=== PATIENT | female | born 1940 | race Caucasian/White ===

== ENCOUNTER 2020-06-12 12:57 | Inpatient (IN) | payer MEDICARE, MEDICAID ==
[~2020-06-12] VITALS: Ht 160 cm; Wt 49.5 kg
[2020-06-12] MEDS ORDERED: FUROSEMIDE20 MG PO (13:14)
[2020-06-12] MEDS ORDERED: ZOFRAN4 MG PO (13:14)
[2020-06-12] MEDS ORDERED: REMERON15 MG PO (13:14)
[2020-06-12 14:07] LABS: ANION GAP 13.2 mmol/L (8-16); CALCIUM 9.8 mg/dL (8.5-10.1); CARBON DIOXIDE 23.8 mmol/L (21.0-32.0)
[2020-06-12 14:13] LABS: ALBUMIN 2.9 g/dL (3.4-5.0); BILIRUBIN - TOTAL 0.27 mg/dL (0.2-1.3); PROTEIN - SERUM 7.1 g/dL (6.4-8.2)
[2020-06-12 14:15] LABS: BASOPHILS 0.5 % (0-2); EOSINOPHILS 0.2 % (0-7); HEMATOCRIT 36.7 % (36.0-48.0); HEMOGLOBIN 12.6 g/dL (12-16); IMMATURE GRANULOCYTES 0.5 % (0-5); LYMPHOCYTE ABS# 0.86 10x3/uL (1.18-3.74); LYMPHOCYTES 21.4 % (15-50); MCH 32.1 pg (26.0-34.0); MCHC 34.3 g/dL (31.0-37.0); MCV 93.4 fL (80.0-100.0); MEAN PLATELET VOLUME 9.7 fL (7.4-10.4); MONOCYTES 10.2 % (2-11); NEUTROPHIL ABS# 2.69 10x3/uL (1.56-6.13); NEUTROPHILS 67.2 % (40-80); PLATELET COUNT 214 10x3/uL (130-400); RBC 3.93 10x6/uL (4.00-5.40); RDW 12.2 % (11.5-14.5)
--- NOTE | 2020-06-12 15:00 | NUR ---
URINE OBTAINED AND TAKEN TO THE LAB
[2020-06-12 15:06] LABS: CKMB 1.9 U/L (0.0-3.6); CREATINE KINASE 292 UL (21-215); MAGNESIUM - SERUM 2.2 mg/dL (1.8-2.4); TROPONIN-I < 0.017 ng/mL (0.000-0.060)
[2020-06-12 15:30] LABS: UDS - AMPHET NEGATIVE QUAL (NEGATIVE); UDS - BARB NEGATIVE QUAL (NEGATIVE); UDS - BENZO NEGATIVE QUAL (NEGATIVE); UDS - COCAINE NEGATIVE QUAL (NEGATIVE); UDS - OPIATE NEGATIVE QUAL (NEGATIVE); UDS - PCP NEGATIVE QUAL (NEGATIVE); UDS - THC NEGATIVE QUAL (NEGATIVE)
[2020-06-12 15:36] LABS: INR 0.94 (0.85-1.17); PROTIME 11.6 SECONDS (11.6-15.0)
[2020-06-12 15:37] LABS: APTT 28.3 SECONDS (22.8-39.4)
[2020-06-12 15:52] LABS: BILIRUBIN NEGATIVE (NEGATIVE); KETONE NEGATIVE (NEGATIVE); NITRITE NEGATIVE (NEGATIVE); UROBILINOGEN NORMAL mg/dL (< 2)
[2020-06-12 15:53] LABS: BACTERIA FEW HPF (NONE SEEN); SQUAMOUS EPITHELIAL OCC HPF (0-4); WHITE CELLS - URINE 0-5 HPF (0-4)
--- NOTE | 2020-06-12 19:09 | NUR ---
PT IS AWAKE WITH EYES OPEN, ABLE TO HOLD CONVERSATION. SHE DOES NOT REMEMBER SEEING HER DAUGHTER 4 DAYS AGO AND DOESN'T REMEMBER ANYTHING SINCE.
--- NOTE | 2020-06-12 19:29 | NUR ---
FSBS 144
--- NOTE | 2020-06-12 20:10 | NUR ---
PT TO MRI AT THIS TIME.
[2020-06-12 20:28] VITALS: BP 147/54
[2020-06-12 21:23] VITALS: BP 160/65
[2020-06-12 22:50] VITALS: BP 155/60
--- NOTE | 2020-06-13 06:47 | NUR ---
PATIENT FSBS 61. HELPED PATIENT DRINK ORANGE JUICE.
[2020-06-13 08:31] LABS: BASOPHILS 0.4 % (0-2); EOSINOPHILS 1.3 % (0-7); HEMATOCRIT 35.2 % (36.0-48.0); HEMOGLOBIN 11.9 g/dL (12-16); IMMATURE GRANULOCYTES 0.2 % (0-5); LYMPHOCYTE ABS# 1.38 10x3/uL (1.18-3.74); LYMPHOCYTES 29.2 % (15-50); MCH 31.6 pg (26.0-34.0); MCHC 33.8 g/dL (31.0-37.0); MCV 93.6 fL (80.0-100.0); MEAN PLATELET VOLUME 9.8 fL (7.4-10.4); MONOCYTES 10.4 % (2-11); NEUTROPHIL ABS# 2.77 10x3/uL (1.56-6.13); NEUTROPHILS 58.5 % (40-80); PLATELET COUNT 199 10x3/uL (130-400); RBC 3.76 10x6/uL (4.00-5.40); RDW 12.2 % (11.5-14.5); WBC 4.7 10x3/uL (4.8-10.8)
[2020-06-13 08:52] LABS: ALBUMIN 2.4 g/dL (3.4-5.0); ANION GAP 11.5 mmol/L (8-16); BILIRUBIN - TOTAL 0.17 mg/dL (0.2-1.3); CALCIUM 8.7 mg/dL (8.5-10.1); CARBON DIOXIDE 25.1 mmol/L (21.0-32.0); CREATININE - SERUM 0.8 mg/dL (0.6-1.3); MAGNESIUM - SERUM 1.9 mg/dL (1.8-2.4); POTASSIUM - SERUM 3.6 mmol/L (3.5-5.1); PROTEIN - SERUM 6.1 g/dL (6.4-8.2)
[2020-06-13 09:24] VITALS: BP 142/68
--- NOTE | 2020-06-13 10:47 | NUR ---
Rehab Prescreening Consult recieved and the chart. She still has a CM, PT, OT and an ST eval pending. Rehab Will follow. Ebony Christie RN Clinical Liaison, Rehab
[2020-06-13 12:54] VITALS: BMI 19.4
--- NOTE | 2020-06-13 14:00 | NUR ---
INCONTINENCE CARE, HYGIENE CARE AND LINEN CHANGE. SCD'S APPLIED.
[2020-06-13 20:23] VITALS: BP 109/43
--- NOTE | 2020-06-13 22:01 | NUR ---
REC'D WALKING ROUNDS CHGE OF SHIFT IN BED FAMILY MEMBER AT BEDSIDE. ALERT BUT CONFUSED TO TIME AND SITUATION LUIZA MAT IN PLACE.WILL CONTINUE TO MONITOR FOR ANY CHGES AND FOLLOW CURRENT PLAN OF CARE
[2020-06-14] VITALS (7 sets, daily range): BP systolic 110–138; BP diastolic 40–66; Ht 160 cm; Wt 49.5 kg
--- NOTE | 2020-06-14 05:54 | NUR ---
I have reviewed this patient and I concur with the Shift Assessment completed by the Licensed Practical Nurse today this shift.
[2020-06-14 06:41] LABS: ALBUMIN 2.4 g/dL (3.4-5.0); ANION GAP 11.6 mmol/L (8-16); BILIRUBIN - TOTAL 0.14 mg/dL (0.2-1.3); CALCIUM 8.7 mg/dL (8.5-10.1); CARBON DIOXIDE 25.5 mmol/L (21.0-32.0); CREATININE - SERUM 0.9 mg/dL (0.6-1.3); MAGNESIUM - SERUM 1.8 mg/dL (1.8-2.4); POTASSIUM - SERUM 3.1 mmol/L (3.5-5.1)
[2020-06-14 06:50] LABS: BASOPHILS 0.9 % (0-2); EOSINOPHILS 1.8 % (0-7); HEMATOCRIT 33.8 % (36.0-48.0); HEMOGLOBIN 11.5 g/dL (12-16); IMMATURE GRANULOCYTES 0.2 % (0-5); LYMPHOCYTE ABS# 2.02 10x3/uL (1.18-3.74); LYMPHOCYTES 44.2 % (15-50); MCH 31.7 pg (26.0-34.0); MCV 93.1 fL (80.0-100.0); MEAN PLATELET VOLUME 9.9 fL (7.4-10.4); MONOCYTES 11.8 % (2-11); NEUTROPHIL ABS# 1.88 10x3/uL (1.56-6.13); NEUTROPHILS 41.1 % (40-80); PLATELET COUNT 209 10x3/uL (130-400); RBC 3.63 10x6/uL (4.00-5.40); RDW 12.1 % (11.5-14.5); WBC 4.6 10x3/uL (4.8-10.8)
--- NOTE | 2020-06-14 07:28 | NUR ---
ALERT AND ORIENTED TO SELF. ASSESSMENT COMPLETE. BED LOW. CALL WELCH AND PERSONAL ITEMS IN REACH. WILL CONTINUE TO MONITOR.
--- NOTE | 2020-06-14 10:19 | NUR ---
IV PULLED OUT BY PATIENT TO LFA. REMOVED WITH TIP INTACT. ATTEMPTED TO RESITE TO INNER LFA WITH 22 GAUGE WITHOUT SUCCESS D/T PATIENT YELLING AND PULLING ARM AWAY. WILL HAVE SECOND NURSE ATTEMPT.
--- NOTE | 2020-06-14 10:30 | NUR ---
IV SITED TO [facility] WITH 22 GAUGE.
--- NOTE | 2020-06-14 16:43 | NUR ---
OT NOTE: PT IS CONFUSED. PT COMPLETED FACE AND HAND HYGIENE WITH SETUP AND MIN CUES FOR INCREASED PARTICIPATION. PT COMPLETED ORAL CARE WITH SETUP WITH TOOTHETTE. THANK YOU,VILMA ROWE
--- NOTE | 2020-06-14 22:57 | NUR ---
PATIENT WAS ASLEEP IN BED UPON ARRIVAL OF ASSIGNMENT. EASY TO AROUSE. NO PAIN NOR DISTRESS NOTED. IV INTACT AND FLOWING NORMAL SALINE. BED IN LOW POSITON. CALL WELCH LIGHT IN REACH. REORIENTED TO CALL FOR HELP TO BATHROOM.
[2020-06-15] VITALS: BP 114/47
[2020-06-15 04:00] VITALS: BP 167/59
[2020-06-15 06:14] LABS: BASOPHILS 0.4 % (0-2); EOSINOPHILS 1.6 % (0-7); HEMATOCRIT 30.5 % (36.0-48.0); HEMOGLOBIN 10.6 g/dL (12-16); IMMATURE GRANULOCYTES 0.4 % (0-5); LYMPHOCYTE ABS# 2.28 10x3/uL (1.18-3.74); MCH 31.9 pg (26.0-34.0); MCHC 34.8 g/dL (31.0-37.0); MCV 91.9 fL (80.0-100.0); MEAN PLATELET VOLUME 9.8 fL (7.4-10.4); MONOCYTES 12.4 % (2-11); NEUTROPHIL ABS# 2.04 10x3/uL (1.56-6.13); NEUTROPHILS 40.2 % (40-80); PLATELET COUNT 210 10x3/uL (130-400); RBC 3.32 10x6/uL (4.00-5.40); RDW 12.1 % (11.5-14.5); WBC 5.1 10x3/uL (4.8-10.8)
[2020-06-15 06:18] LABS: ALBUMIN 2.1 g/dL (3.4-5.0); ANION GAP 9.5 mmol/L (8-16); BILIRUBIN - TOTAL 0.12 mg/dL (0.2-1.3); CALCIUM 8.1 mg/dL (8.5-10.1); CARBON DIOXIDE 25.4 mmol/L (21.0-32.0); MAGNESIUM - SERUM 1.8 mg/dL (1.8-2.4); PROTEIN - SERUM 5.7 g/dL (6.4-8.2)
[2020-06-15 07:14] LABS: POTASSIUM - SERUM 2.9 mmol/L (3.5-5.1)
--- NOTE | 2020-06-15 08:24 | NUR ---
Pt laying in bed on right side, refused medications, threats to hit staff, was able to get protonix iv to pt
[2020-06-15 08:33] VITALS: BP 170/67
--- NOTE | 2020-06-15 10:39 | NUR ---
PT INFORMED THIS RN THAT PT REFUSE AND WOULD NOT GET UP OR ROLL OVER FOR THEM, THEY WILL TRY AGAIN LATER IF THEY HAVE TIME
--- NOTE | 2020-06-15 11:54 | NUR ---
PT LAYING IN BED ON RIGHT SIDE RESTING WITH EYES CLOSED, ABLE TO OBTAIN FSBG OF 82, REFUSED PO MEDICATION
[2020-06-15 12:30] VITALS: BP 152/58
--- NOTE | 2020-06-15 14:33 | NUR ---
Nutrition follow-up: Pt receiving a consistent CHO diet RDN visited with pt during breakfast; pt had eaten ~50% of meal Pt did answer some questions Labs reviewed Wt: 109# PO intake poor to fair at meals; pt working with speech path Will continue to provide food choices and honor food preferences Will offer Glucerna Shake nutritional supplement RDN follow-up: 06/20/20
--- NOTE | 2020-06-15 14:59 | NUR ---
OT NOTE: PT REQUIRED CUES FOR PARTICIPATION. PT COMPLETED SUPINE TO SIT WITH MIN A. PT COMPLETED BED TO BSC WITH MIN A. PT REQUIRED MOD A FOR TOILET HYGIENE. PT COMPLETED INCREASED FUNCTIONAL TASKS COMPARED TO PREVIOUS SESSION. [id number] THANK YOU,VILMA ROWE
[2020-06-15 16:52] VITALS: BP 141/50
[2020-06-15 20:16] VITALS: BP 160/60
[2020-06-16 01:19] VITALS: BP 174/67
[2020-06-16 05:36] VITALS: BP 151/53
--- NOTE | 2020-06-16 06:23 | NUR ---
PT RESTED THROUGHOUT THE SHIFT. PT GOT UP AND AMBULATED TO THE BEDSIDE COMMODE AND RESTROOM 2-3 TIMES IN THE NIGHT. NO PAIN NOTED. CURRENTLY RESTING IN BED WITH IT IN THE LOWEST POSITION. BED ALARM IS ACTIVATED. CALL WELCH LIGHT IN REACH. BLOOD GLUCOSE WAS 89 THIS MORNING. NO TREATMENT NECCESSARY
[2020-06-16 08:42] LABS: BASOPHILS 0.5 % (0-2); EOSINOPHILS 1.7 % (0-7); HEMATOCRIT 30.7 % (36.0-48.0); HEMOGLOBIN 10.7 g/dL (12-16); IMMATURE GRANULOCYTES 0.2 % (0-5); LYMPHOCYTE ABS# 2.56 10x3/uL (1.18-3.74); LYMPHOCYTES 43.8 % (15-50); MCH 31.8 pg (26.0-34.0); MCHC 34.9 g/dL (31.0-37.0); MCV 91.4 fL (80.0-100.0); MEAN PLATELET VOLUME 9.6 fL (7.4-10.4); MONOCYTES 14.2 % (2-11); NEUTROPHIL ABS# 2.31 10x3/uL (1.56-6.13); NEUTROPHILS 39.6 % (40-80); PLATELET COUNT 216 10x3/uL (130-400); RBC 3.36 10x6/uL (4.00-5.40); RDW 12.1 % (11.5-14.5); WBC 5.8 10x3/uL (4.8-10.8)
[2020-06-16 08:54] LABS: ALBUMIN 2.1 g/dL (3.4-5.0); ALKALINE PHOSPHATASE 72 U/L (30-120); BILIRUBIN - TOTAL 0.16 mg/dL (0.2-1.3); CALCIUM 8.2 mg/dL (8.5-10.1); CARBON DIOXIDE 25.8 mmol/L (21.0-32.0); CHLORIDE - SERUM 111 mmol/L (98-107); GLUCOSE 75 mg/dL (74-106); MAGNESIUM - SERUM 1.8 mg/dL (1.8-2.4); POTASSIUM - SERUM 3.2 mmol/L (3.5-5.1); PROTEIN - SERUM 5.7 g/dL (6.4-8.2); SODIUM 141 mmol/L (136-145)
[2020-06-16 08:57] LABS: ALT (SGPT) 24 U/L (10-68); CALC OSMOLALITY 278 mosm/kg (275-300); CREATININE - SERUM 0.6 mg/dL (0.6-1.3); UREA NITROGEN 11 mg/dL (7-18); eGFR NON AFRICAN AMERICAN > 90 mL/min (90-120)
--- NOTE | 2020-06-16 09:23 | NUR ---
PT RESUED VS AND MEDICATIONS THIS MORNING, WOULD NOT LET STAFF OBTAIN FSBG OR GIVE LOVENOX
[2020-06-16 11:54] VITALS: BP 172/64
[2020-06-16 17:12] VITALS: BP 127/55
--- NOTE | 2020-06-16 19:07 | NUR ---
RECEIVED REPORT, ASSUMED CARE, BREATHING EVEN UNLABORED, CALL LIGHT IN REACH, NO S/S OF DISTRESS NOTED, DENIES NEEDS, IV PATENT, ENCOURAGED PT TO NOTIFY STAFF OF ANY NEEDS, SITTING UP IN BED, LUIZA ALARM ON
[2020-06-16 21:51] VITALS: BP 136/55
[2020-06-17 01:25] VITALS: BP 137/45
[2020-06-17 05:47] VITALS: BP 193/64
[2020-06-17 06:00] LABS: BASOPHILS 0.5 % (0-2); EOSINOPHILS 1.4 % (0-7); HEMATOCRIT 31.2 % (36.0-48.0); HEMOGLOBIN 10.7 g/dL (12-16); IMMATURE GRANULOCYTES 0.6 % (0-5); LYMPHOCYTE ABS# 2.05 10x3/uL (1.18-3.74); LYMPHOCYTES 31.4 % (15-50); MCH 31.3 pg (26.0-34.0); MCHC 34.3 g/dL (31.0-37.0); MCV 91.2 fL (80.0-100.0); MEAN PLATELET VOLUME 10.2 fL (7.4-10.4); MONOCYTES 11.8 % (2-11); NEUTROPHIL ABS# 3.55 10x3/uL (1.56-6.13); NEUTROPHILS 54.3 % (40-80); RBC 3.42 10x6/uL (4.00-5.40); RDW 12.3 % (11.5-14.5); WBC 6.5 10x3/uL (4.8-10.8)
[2020-06-17 06:13] LABS: PLATELET COUNT 269 10x3/uL (130-400)
--- NOTE | 2020-06-17 06:54 | NUR ---
I have reviewed this patient and I concur with the Shift Assessment completed by the Licensed Practical Nurse today this shift.
[2020-06-17 07:53] LABS: ALBUMIN 2.2 g/dL (3.4-5.0); ANION GAP 6.9 mmol/L (8-16); BILIRUBIN - TOTAL 0.18 mg/dL (0.2-1.3); CARBON DIOXIDE 26.8 mmol/L (21.0-32.0); MAGNESIUM - SERUM 2.1 mg/dL (1.8-2.4); POTASSIUM - SERUM 3.7 mmol/L (3.5-5.1)
[2020-06-17 07:56] LABS: CREATININE - SERUM 0.8 mg/dL (0.6-1.3)
--- NOTE | 2020-06-17 08:33 | NUR ---
PT AGREED TO LOVENOX INJECTION THIS MORNING, TRIED TO RESIST AND PUSH THIS RN AWAY WITH INITIAL STICK BUT THEN CALMED DOWN AND ALLOWED RN TO FINISH INJECTION. REFUSED PO.
--- NOTE | 2020-06-17 10:41 | NUR ---
PT WET, SLAPPED AIDS AND REFUSED TO LET THEM CHANGE HER
[2020-06-17 12:43] VITALS: BP 137/50
--- NOTE | 2020-06-17 16:52 | NUR ---
PT HAS BEEN SLEEPING ALL DAY, FSBG OF 95, NO ISULIN COVERAGE NEEDED, PT HAS NOT BEEN UP OR ALLOWED STAFF TO CHANGE HER
--- NOTE | 2020-06-17 19:10 | NUR ---
RECEIVED REPORT, ASSUMED CARE, BREATHING EVEN UNLABORED, CALL LIGHT IN REACH, NO S/S OF DISTRESS NOTED, DENIES NEEDS, IV PATENT, ENCOURAGED PT TO NOTIFY STAFF OF ANY NEEDS, SLEEPING, LUIZA ALARM ON
[2020-06-17 20:51] VITALS: BP 114/62
--- NOTE | 2020-06-17 21:30 | NUR ---
BALL POINT SPLITTER ATTEMPTED CHANGE PT BED LINENS, PT REFUSED, WHEN STAFF EDUCATED PT ON THE NEED FOR DRY LINENS PT SWUNG HER FIST AND KICKED AT BALL POINT SPLITTER
--- NOTE | 2020-06-18 | NUR ---
RN ADMISSIONS AND THIS NURSE ATTEMPTED TO CHANGE LINENS AGAIN, TRIED TO RE-EDUCATE PT ON THE IMPORTANCE, PT STILL REFUSED
--- NOTE | 2020-06-18 09:00 | NUR ---
PATIENT REFUSED TO EAT OR ALLOW NEAR EASTERN ARCHAEOLOGY LECTURER TO TAKE VS. PATIENT TOOK LASIX WITH A BITE OF APPLESAUCE BUT THEN TOLD ME TO GET OUT. CONTINUE WITH PLAN OF CARE
[2020-06-18 12:39] LABS: CALCIUM 8.6 mg/dL (8.5-10.1); CARBON DIOXIDE 31.2 mmol/L (21.0-32.0); CHLORIDE - SERUM 107 mmol/L (98-107); CREATININE - SERUM 0.7 mg/dL (0.6-1.3); MAGNESIUM - SERUM 2.1 mg/dL (1.8-2.4); POTASSIUM - SERUM 3.5 mmol/L (3.5-5.1); SODIUM 140 mmol/L (136-145); eGFR NON AFRICAN AMERICAN 85 mL/min (90-120)
[2020-06-18 12:42] LABS: CALC OSMOLALITY 276 mosm/kg (275-300); GLUCOSE 98 mg/dL (74-106); UREA NITROGEN 6 mg/dL (7-18)
[2020-06-18 12:55] LABS: BASOPHILS 0.6 % (0-2); EOSINOPHILS 0.5 % (0-7); HEMOGLOBIN 12.2 g/dL (12-16); IMMATURE GRANULOCYTES 0.8 % (0-5); LYMPHOCYTE ABS# 1.68 10x3/uL (1.18-3.74); LYMPHOCYTES 25.6 % (15-50); MCHC 34.9 g/dL (31.0-37.0); MCV 91.9 fL (80.0-100.0); MEAN PLATELET VOLUME 9.6 fL (7.4-10.4); MONOCYTES 12.4 % (2-11); NEUTROPHIL ABS# 3.94 10x3/uL (1.56-6.13); NEUTROPHILS 60.1 % (40-80); RBC 3.81 10x6/uL (4.00-5.40); RDW 12.3 % (11.5-14.5); WBC 6.6 10x3/uL (4.8-10.8)
[2020-06-18 13:00] LABS: PLATELET COUNT 325 10x3/uL (130-400)
--- NOTE | 2020-06-18 13:17 | NUR ---
PATIENT REFUSED CREATIVE TECHNOLOGIST TO DO VS, ABLE TO GET PATIENT TO ALLOW ME TO GET TEMP, HR, O2 AND RESPORATIONS, PATIENT IS FINALLY EATING AND REFUSED BP AT THIS TIME. WILL ALLOW PATIENT TO EAT. CONTINUE WITH PLAN OF CARE
--- NOTE | 2020-06-18 13:42 | MORECARE ---
CASE MANAGEMENT DISCHARGE SUMMARY PATIENT: KHAI CHAMORRO UNIT: [id number] ADM DATE: 06/12/20 AGE: 79 : 39 SEX: F ROOM/BED: D.2220 AUTHOR: DREAD LADD PHYSICIAN: REFERRING PHYSICIAN: JOSE A ALBA DO DATE OF SERVICE: 06/18/20 Discharge Plan Patient Name: KHAI CHAMORRO Facility: [facility]:[place] : 1940 Planned Disposition: Fci Facility Anticipated Discharge Date: Discharge Date: Expected LOS: Initial Reviewer: [email or web address] Initial Review Date: 06/12/2020 Generated: 06/18/20 2:41 pm DCPIA - Discharge Planning Initial Assessment Updated by [email or web address]: Tish Zuluaga on 06/18/20 1:38 pm * Is the patient Alert and Oriented? Yes * How many steps to enter\exit or inside your home? * PCP VERSER * Pharmacy [facility] * Preadmission Environment Home with Family * ADLs Partial Dependent * Partial ADLs (Assistance needed) Ambulation Bathing * Equipment Oxygen * Other Equipment HAS ORDERED A WALKER * List name and contact numbers for known caregivers / representatives who currently or will assist patient after discharge: YANE ESTES ( DAUGHTER) [phone] * Verbal permission to speak to the caregivers and representatives has been obtained from the patient. N/A * Community resources currently utilized None * Additional services required to return to the preadmission environment? Yes * Can the patient safely return to the preadmission environment? No * Has this patient been hospitalized within the prior 30 days at any hospital? No External Providers External Provider: [facility] Next Contact Date: Service Request Date: Service Type: Resolution: Reviewer: Comments: Patient Name: KHAI CHAMORRO Page [phone] at 1342 All edits/amendments must be made on the electronic document DICTATION DATE: 06/18/20 1342 HELMET HAT BRIM CUTTER: CLEVE 06/18/20 1342 RPT#: [id number] DC DATE: STATUS: ADM IN [facility] [address] [place] [address] END OF REPORT
--- NOTE | 2020-06-18 13:51 | MORECARE ---
CASE MANAGEMENT DISCHARGE SUMMARY PATIENT: KHAI CHAMORRO UNIT: [id number] ADM DATE: 06/12/20 AGE: 79 : 39 SEX: F ROOM/BED: D.2220 AUTHOR: DREAD LADD PHYSICIAN: REFERRING PHYSICIAN: JOSE A ALBA DO DATE OF SERVICE: 06/18/20 Discharge Plan Patient Name: KHAI CHAMORRO Facility: [facility]:[place] : 1940 Planned Disposition: Detention Facility Anticipated Discharge Date: Discharge Date: Expected LOS: Initial Reviewer: [email or web address] Initial Review Date: 06/12/2020 Generated: 06/18/20 2:50 pm Comments DCP- Discharge Planning Updated by [email or web address]: Tish Zuluaga on 06/18/20 12:[address] Patient Name: KHAI CHAMORRO Admission Status: ER Accout number: [id number] Admission Date: 06-12-2020 : 1940 Admission Diagnosis:URINARY TRACT INFECTION, SITE NOT SPECIFIED Attending: JOSE A ALBA Current LOS: 6 Anticipated DC Date: Planned Disposition: Detention Facility Primary Insurance: MEDICARE A & B Discharge Planning Comments: CM spoke with patient's daughter, Simi to discuss discharge planning needs. Simi stated that her mom lives with her spouse where she has been partially dependent for the past 2 years. Simi has been coming to the house every weekend to help her mom with baths. Simi stated that her dad helps her during the week when needed. She has homeO2 from [facility] and they had just ordered her mom a walker to use at home. Per Simi she has never been admitted to the hospital and didn't take any medications. Simi would like her mom to go t [facility] for rehab. SWETHA obtained over the phone. I have called Gillian with [facility] and faxed the referral to her. CM will wait to hear back from them about the referral. CM to follow and assist as needed Site Promotion Agent: Tish Zuluaga DCPIA - Discharge Planning Initial Assessment Updated by [id number]: Tish Zuluaga on 06/18/20 1:38 pm * Is the patient Alert and Oriented? Yes * How many steps to enter\exit or inside your home? * PCP VERSER * Pharmacy [facility] * Preadmission Environment Home with Family * ADLs Partial Dependent * Partial ADLs (Assistance needed) Ambulation Bathing * Equipment Oxygen * Other Equipment HAS ORDERED A WALKER * List name and contact numbers for known caregivers / representatives who currently or will assist patient after discharge: SIMI ESTES ( DAUGHTER) [phone] * Verbal permission to speak to the caregivers and representatives has been obtained from the patient. N/A * Community resources currently utilized None * Additional services required to return to the preadmission environment? Yes * Can the patient safely return to the preadmission environment? No * Has this patient been hospitalized within the prior 30 days at any hospital? No Coverage Notice Reviewer: [email or web address] Tarun Zuluaga Notice Issued Date-Time: 06/18/2020 13:44 Notice Type: Patient Choice Letter Notice Delivered To: Family Member Relationship to Patient: Daughter Research Dairy Farm Supervisor Name: SIMI Delivery Method: HAND - Hand Delivered Alpa Days: Prior Verbal Notification: Recipient Understood Notice: Yes Recipient Signature: Yes Med Rec Note Co-signed by Attending: Coverage Notice Comment: SWETHA FOR [facility] Last DP export: 06/18/20 12:42 pm Patient Name: KHAI CHAMORRO Page [phone] at 1351 All edits/amendments must be made on the electronic document DICTATION DATE: 06/18/20 1350 TRANSPORTATION PLANNING TECHNICIAN: CLEVE 06/18/20 1350 RPT#: [id number] DC DATE: STATUS: ADM IN [facility] [address] [place] [address] END OF REPORT
[2020-06-18 15:00] VITALS: BP 141/81
--- NOTE | 2020-06-18 15:01 | NUR ---
PATIENT UP MOVING AROUND IN ROOM. CHANGED PATIENT BRIEFS WELL FULL LINEN CHANGE. PATIENT IS SITTING UP IN STRAIGHT CHAIR AT BEDSIDE, DOES NOT WANT BACK IN BED AT THIS TIME. IV TO LEFT FA SL SO PATIENT DOES NOT ACCIDENTALLY PULL OUT. CONTINUE WITH PLAN OF CARE
--- NOTE | 2020-06-18 15:29 | NUR ---
PATIENT USED RESTROOM IN BSC THAT DID NOT HAVE BUCKET IN IT. CAN NOT FAULT PATIENT FOR THAT SINCE SHE IS AWARE WHAT THE BEDSIDE COMMODE IS FOR. PATIENT DOES NOT WANT TO STAY IN ROOM. CONTINUES TO GET UP AND COME TO DOOR. CONTINUE WITH PLAN OF CARE
--- NOTE | 2020-06-18 15:59 | NUR ---
OT NOTE: PT REQUIRED EXTENSIVE CUES FOR MINIMIAL PARTICIPATION. ESPARZA ATTEMPTED SEVERAL TIMES TO ENCOURAGE PT TO EAT AND DRINK. PT COMPLETED FACE HYGIENE WITH MOD A AND EXTENSIVE TIME. PT COMPLETED BED MOB TASKS WITH MIN-MOD A. PT EXHIBITED SELF LIMITING BEHAVIORS. [id number] TE LOCKHART COTA
--- NOTE | 2020-06-18 17:00 | NUR ---
I have reviewed this patient and I concur with the Shift Assessment completed by the Licensed Practical Nurse today this shift.
--- NOTE | 2020-06-18 19:00 | NUR ---
BEDSIDE REPORT RECEIVED AND CARE OF PT ASSUMED. PT LYING IN HIGH SARGENT'S POSITION TALKING ON THE PHONE. IV TO RIGHT FA SALINE LOCKED. WILL MONITOR FOR NEEDS.
[2020-06-18 20:00] VITALS: BP 143/65
--- NOTE | 2020-06-18 20:47 | NUR ---
HS MEDICATIONS GIVEN. WILL CONTINUE TO MONITOR FOR NEEDS.
[2020-06-19 06:14] LABS: CALC OSMOLALITY 275 mosm/kg (275-300); CALCIUM 8.8 mg/dL (8.5-10.1); CARBON DIOXIDE 30.5 mmol/L (21.0-32.0); CHLORIDE - SERUM 104 mmol/L (98-107); CREATININE - SERUM 0.7 mg/dL (0.6-1.3); GLUCOSE 99 mg/dL (74-106); MAGNESIUM - SERUM 2.1 mg/dL (1.8-2.4); POTASSIUM - SERUM 3.6 mmol/L (3.5-5.1); SODIUM 139 mmol/L (136-145); UREA NITROGEN 7 mg/dL (7-18); eGFR NON AFRICAN AMERICAN 85 mL/min (90-120)
[2020-06-19 07:00] LABS: BASOPHILS 0.4 % (0-2); EOSINOPHILS 1.3 % (0-7); HEMATOCRIT 31.5 % (36.0-48.0); HEMOGLOBIN 10.9 g/dL (12-16); IMMATURE GRANULOCYTES 0.6 % (0-5); LYMPHOCYTE ABS# 2.24 10x3/uL (1.18-3.74); LYMPHOCYTES 31.5 % (15-50); MCHC 34.6 g/dL (31.0-37.0); MCV 92.4 fL (80.0-100.0); MEAN PLATELET VOLUME 9.7 fL (7.4-10.4); MONOCYTES 13.2 % (2-11); NEUTROPHIL ABS# 3.77 10x3/uL (1.56-6.13); PLATELET COUNT 310 10x3/uL (130-400); RBC 3.41 10x6/uL (4.00-5.40); RDW 12.3 % (11.5-14.5); WBC 7.1 10x3/uL (4.8-10.8)
--- NOTE | 2020-06-19 08:00 | NUR ---
PATIENT IN BED WITH IV INTACT. NO COMPLAINTS OR SIGNS OF DISTRESS. DOES NOT WANT WAKE UP AND EAT. STATED SHE WOULD EAT LATER. CALL LIGHT WITHIN REACH.
--- NOTE | 2020-06-19 10:05 | MORECARE ---
CASE MANAGEMENT DISCHARGE SUMMARY PATIENT: KHAI CHAMORRO UNIT: [id number] ADM DATE: 06/12/20 AGE: 79 : 39 SEX: F ROOM/BED: D.2220 AUTHOR: WILBERTODOC PHYSICIAN: REFERRING PHYSICIAN: JOSE A ALBA DO DATE OF SERVICE: 06/19/20 Discharge Plan Patient Name: KHAI CHAMORRO Facility: [facility]:[place] : 1940 Planned Disposition: Penitentiary Facility Anticipated Discharge Date: Discharge Date: Expected LOS: Initial Reviewer: [email or web address] Initial Review Date: 06/12/2020 Generated: 06/19/20 11:04 am Comments DCP- Discharge Planning Updated by [email or web address]: Tish Zuluaga on 06/19/20 8:[address] GILLIAN WITH [facility] STATED THAT THEY WOULD ACCEPT THE PATIENT WHEN SHE IS STABLE. SHE WILL NEED A RAPID COVID PRIOR TO COMING I ATTEMPTED TO CALL EMELYN TO LET HER KNOW, BUT I DID NOT GET AN ANSWER NO MESSAGE LEFT DCP- Discharge Planning Updated by [id number]: Tish Zuluaga on 06/18/20 12:[address] Patient Name: KHAI CHAMORRO Admission Status: ER Accout number: [id number] Admission Date: 06-12-2020 : 1940 Admission Diagnosis:URINARY TRACT INFECTION, SITE NOT SPECIFIED Attending: JOSE A ALBA Current LOS: 6 Anticipated DC Date: Planned Disposition: Penitentiary Facility Primary Insurance: MEDICARE A & B Discharge Planning Comments: ALEXI spoke with patient's daughter, Simi to discuss discharge planning needs. Simi stated that her mom lives with her spouse where she has been partially dependent for the past 2 years. Simi has been coming to the house every weekend to help her mom with baths. Simi stated that her dad helps her during the week when needed. She has homeO2 from [facility] and they had just ordered her mom a walker to use at home. Per Simi she has never been admitted to the hospital and didn't take any medications. Simi would like her mom to go t [facility] for rehab. SWETHA obtained over the phone. I have called Gillian with [facility] and faxed the referral to her. CM will wait to hear back from them about the referral. CM to follow and assist as needed Rail Switchman: Tish Zuluaga DCPIA - Discharge Planning Initial Assessment Updated by [email or web address]: Tish Zuluaga on 06/18/20 1:38 pm * Is the patient Alert and Oriented? Yes * How many steps to enter\exit or inside your home? * PCP VERSER * Pharmacy [facility] * Preadmission Environment Home with Family * ADLs Partial Dependent * Partial ADLs (Assistance needed) Ambulation Bathing * Equipment Oxygen * Other Equipment HAS ORDERED A WALKER * List name and contact numbers for known caregivers / representatives who currently or will assist patient after discharge: SIMI ESTES ( DAUGHTER) [phone] * Verbal permission to speak to the caregivers and representatives has been obtained from the patient. N/A * Community resources currently utilized None * Additional services required to return to the preadmission environment? Yes * Can the patient safely return to the preadmission environment? No * Has this patient been hospitalized within the prior 30 days at any hospital? No Coverage Notice Reviewer: [id number] - Tish Zuluaga Notice Issued Date-Time: 06/18/2020 13:44 Notice Type: Patient Choice Letter Notice Delivered To: Family Member Relationship to Patient: Daughter Immunohematologist Name: SIMI Delivery Method: HAND - Hand Delivered Alpa Days: Prior Verbal Notification: Recipient Understood Notice: Yes Recipient Signature: Yes Med Rec Note Co-signed by Attending: Coverage Notice Comment: SWETHA FOR [facility] Last DP export: 06/18/20 12:51 pm Patient Name: KHAI CHAMORRO Page 13098 at 1005 All edits/amendments must be made on the electronic document DICTATION DATE: 06/19/20 1004 INSURANCE WRITER: CLEVE 06/19/20 1004 RPT#: [id number] DC DATE: STATUS: ADM IN [facility] [address] [place] [address] END OF REPORT
[2020-06-19 10:39] VITALS: BP 142/52
--- NOTE | 2020-06-19 12:30 | NUR ---
PATIENT SITTING UP IN BED EATING CHIPS AND GRAPES. IV INTACT. CALL LIGHT WITHIN REACH.
--- NOTE | 2020-06-19 13:17 | CN ---
PATIENT NAME:KHAI CHAMORRO MEDICAL RECORD: [id number] : [birth year] LOCATION:D.MS Ng0 ADMIT DATE: 06/12/20 ACCOUNT: [id number] CONSULTING PHYSICIAN: EFREN HECK MD REFERRING PHYSICIAN: JOSE A ALBA DO DATE OF CONSULTATION: 06/18/2020 IDENTIFYING DATA: The patient is 79 years old and she is admitted to the hospital secondary to mental status changes and a urinary tract infection. CHIEF COMPLAINT: None. HISTORY OF PRESENT ILLNESS: The patient is clearly quite confused. This may be related acutely to what is going on with her medically, but I suspect that underlying this, there is a significant cognitive impairment consistent with a dementing illness. 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 At this point, she is not disruptive in any way, she is just simply angry and refusing medications. She will not give me an explanation as to why she is refusing them. She is only oriented to person. IMPRESSION: 1. Delirium. 2. Dementia. PLAN: At this point, supportive care as best that can be managed would be appropriate. I am going to stop her Remeron as it is significantly antihistaminic and is not helping her underlying difficulty with cognition. I am going to start her on a low dose of Trilafon to assist with her thought disorganization and I will order p.r.n. medications in case she becomes agitated. If her condition does not improve from a behavioral standpoint, I would recommend transfer to the behavioral unit once medically stabilized. TRANSINT:[id number] Voice Confirmation ID: [id number] DOCUMENT ID: [id number] EFREN HECK MD at 1317 CC: [id number] DICTATION DATE: 06/18/20 1603 TAX REPRESENTATIVE: 06/18/20 1729 ADM IN [facility] [id number] [place] [address]
[2020-06-19 14:14] VITALS: BP 143/56
[2020-06-19 15:00] LABS: SARS-CoV-2 ANTIGEN NEGATIVE- SARS-COV-2 (NEGATIVE)
--- NOTE | 2020-06-19 16:27 | NUR ---
OT NOTE: PT REQUIRED EXTENSIVE CUES FOR SIMPLE TASKS. PT HAS PHYSICAL ABILITY BUT COGNITIVE PROCESS IS A BARRIER AT THIS TIME. PT REQUIRED MOD A FOR SIMPLE BED MOBILITY AND SITTING AT EOB. PT COMPLETED SIMPLE HYGIENE TASKS WITH MIN A. [phone] THANK YOU,VILMA ROWE
[2020-06-19 18:28] VITALS: BP 136/50
--- NOTE | 2020-06-19 18:45 | NUR ---
PATIENT IN BED WITH IV INTACT. EYES CLOSED RESTING QUIETLY. CALL LIGHT WITHIN REACH. BA ON.
--- NOTE | 2020-06-19 19:40 | NUR ---
PT LYING IN BED SLEEPING WITHOUT DISTRESS. CL IN REACH, BED ALARM ON
[2020-06-19 20:00] VITALS: BP 100/53
--- NOTE | 2020-06-19 21:45 | NUR ---
PT GIVEN BED BATH AT THIS TIME. LINENS CHANGED. BED ALARM ON
[2020-06-20] VITALS: BP 135/87
[2020-06-20 05:30] LABS: BASOPHILS 0.3 % (0-2); EOSINOPHILS 0.8 % (0-7); HEMATOCRIT 30.7 % (36.0-48.0); HEMOGLOBIN 10.5 g/dL (12-16); IMMATURE GRANULOCYTES 0.3 % (0-5); LYMPHOCYTES 33.8 % (15-50); MCH 31.6 pg (26.0-34.0); MCHC 34.2 g/dL (31.0-37.0); MCV 92.5 fL (80.0-100.0); MEAN PLATELET VOLUME 9.5 fL (7.4-10.4); MONOCYTES 13.5 % (2-11); NEUTROPHIL ABS# 3.02 10x3/uL (1.56-6.13); NEUTROPHILS 51.3 % (40-80); PLATELET COUNT 328 10x3/uL (130-400); RBC 3.32 10x6/uL (4.00-5.40); RDW 12.3 % (11.5-14.5); WBC 5.9 10x3/uL (4.8-10.8)
[2020-06-20 05:57] LABS: CALC OSMOLALITY 278 mosm/kg (275-300); CALCIUM 8.7 mg/dL (8.5-10.1); CARBON DIOXIDE 29.7 mmol/L (21.0-32.0); CHLORIDE - SERUM 106 mmol/L (98-107); CREATININE - SERUM 0.7 mg/dL (0.6-1.3); GLUCOSE 143 mg/dL (74-106); MAGNESIUM - SERUM 2.2 mg/dL (1.8-2.4); SODIUM 139 mmol/L (136-145); eGFR NON AFRICAN AMERICAN 85 mL/min (90-120)
[2020-06-20 05:59] LABS: UREA NITROGEN 11 mg/dL (7-18)
--- NOTE | 2020-06-20 08:00 | NUR ---
ASSESSMENT PER FLOW SHEET. PATIENT IS WITHOUT DISTRESS.FALL PREVENTION WITH LUIZA MAT.DOOR OPEN
[2020-06-20 08:39] VITALS: BP 96/78
[2020-06-20 12:08] VITALS: BP 136/52
--- NOTE | 2020-06-20 14:08 | NUR ---
Nutrition follow-up: Diet: Consistent CHO PO intake; pt ate some chips and grapes 06/20/20; refused meals Pt was asleep during breakfast meal today Not enough intake to do a calorie count Refused to participate in swallow eval per speech note Labs reviewed Wt: 109# Pt not meeting estimated energy needs at this time RD continues to recommend PEG tube vs NGT placement and nutrition support started due to very poor nutritional status at this time RDN will follow-up: 06/21/20
[2020-06-20] MEDS ORDERED: PERPHENAZINE2 MG PO ×2 (15:02→21:14)
[2020-06-20] MEDS ORDERED: GEODON20 M1 IM ×2 (15:02→21:16)
[2020-06-20] MEDS ORDERED: LOVENOX40 MG/0.4 SC ×2 (15:02→21:14)
[2020-06-20] MEDS ORDERED: FLORAJEN3 CAPS460 MG PO ×2 (15:02→21:15)
[2020-06-20] MEDS ORDERED: FLUCONAZOLE150 MG PO (15:03)
[2020-06-20] MEDS ORDERED: HUMULIN R100 UNIT/1 SC ×2 (15:03→21:13)
--- NOTE | 2020-06-20 16:15 | NUR ---
OT NOTE: PT SEEN EARLY FOR OT TO ASSIST WITH BREAKFAST. PROVIDED PT WITH WASH CLOTH TO WASH HANDS AND FACE.. ENCOURAGED PT TO AMB TO TOILET BUT SHE REFUSED; ENCOURAGED TO SIT UP ON EOB AND SHE REFUSED. UNABLE TO GET PT TO ATTEMPT MOST ADLS,HOWEVER, IN PM, PT HAD BAG OF CHIPS AND SNACK CAKES BESIDE HER IN THE BED.. MOST OF CHIPS WERE GONE BUT SHE HAD NOT, AND DID NOT WANT TO EAT LUNCH. ISRAEL QUIÑONEZ, OTR/L [phone]
--- NOTE | 2020-06-20 16:42 | MORECARE ---
CASE MANAGEMENT DISCHARGE SUMMARY PATIENT: KHAI CHAMORRO UNIT: [id number] ADM DATE: 06/12/20 AGE: 79 : 39 SEX: F ROOM/BED: D.2220 AUTHOR: WILBERTODOC PHYSICIAN: REFERRING PHYSICIAN: JOSE A ALBA DO DATE OF SERVICE: 06/20/20 Discharge Plan Patient Name: KHAI CHAMORRO Facility: [facility]:[place] : 1940 Planned Disposition: Longterm Facility Anticipated Discharge Date: Discharge Date: Expected LOS: Initial Reviewer: [id number] Initial Review Date: 06/12/2020 Generated: 06/20/20 5:41 pm Comments DCP- Discharge Planning Updated by [email or web address]: Tish Zuluaga on 06/19/20 8:[address]ILLIAN WITH [facility] STATED THAT THEY WOULD ACCEPT THE PATIENT WHEN SHE IS STABLE. SHE WILL NEED A RAPID COVID PRIOR TO COMING I ATTEMPTED TO CALL EMELYN TO LET HER KNOW, BUT I DID NOT GET AN ANSWER NO MESSAGE LEFT DCP- Discharge Planning Updated by [email or web address]: Tish Zuluaga on 06/18/20 12:[address] Patient Name: KHAI CHAMORRO Admission Status: ER Accout number: [id number] Admission Date: 06-12-2020 : 1940 Admission Diagnosis:URINARY TRACT INFECTION, SITE NOT SPECIFIED Attending: JOSE A ALBA Current LOS: 6 Anticipated DC Date: Planned Disposition: Longterm Facility Primary Insurance: MEDICARE A & B Discharge Planning Comments: ALEXI spoke with patient's daughter, Simi to discuss discharge planning needs. Simi stated that her mom lives with her spouse where she has been partially dependent for the past 2 years. Simi has been coming to the house every weekend to help her mom with baths. Simi stated that her dad helps her during the week when needed. She has homeO2 from [facility] and they had just ordered her mom a walker to use at home. Per Simi she has never been admitted to the hospital and didn't take any medications. Simi would like her mom to go t [facility] for rehab. SWETHA obtained over the phone. I have called Gillian with [facility] and faxed the referral to her. CM will wait to hear back from them about the referral. CM to follow and assist as needed Ems Manager: Tish Zuluaga DCPIA - Discharge Planning Initial Assessment Updated by [email or web address]: Tish Zuluaga on 06/18/20 1:38 pm * Is the patient Alert and Oriented? Yes * How many steps to enter\exit or inside your home? * PCP [facility] * [facility] * Preadmission Environment Home with Family * ADLs Partial Dependent * Partial ADLs (Assistance needed) Ambulation Bathing * Equipment Oxygen * Other Equipment HAS ORDERED A WALKER * List name and contact numbers for known caregivers / representatives who currently or will assist patient after discharge: SIMI SETES ( DAUGHTER) [phone] * Verbal permission to speak to the caregivers and representatives has been obtained from the patient. N/A * Community resources currently utilized None * Additional services required to return to the preadmission environment? Yes * Can the patient safely return to the preadmission environment? No * Has this patient been hospitalized within the prior 30 days at any hospital? No Coverage Notice Reviewer: [id number] - Tish Zuluaga Notice Issued Date-Time: 06/18/2020 13:44 Notice Type: Patient Choice Letter Notice Delivered To: Family Member Relationship to Patient: Daughter Tape Sewer Name: SIMI Delivery Method: HAND - Hand Delivered Alpa Days: Prior Verbal Notification: Recipient Understood Notice: Yes Recipient Signature: Yes Med Rec Note Co-signed by Attending: Coverage Notice Comment: SWETHA FOR [facility] Last DP export: 06/19/20 9:05 am Patient Name: KHAI CHAMORRO Page [id number] at 1642 All edits/amendments must be made on the electronic document DICTATION DATE: 06/20/201640 SWITCHBOARD MECHANIC: CLEVE 06/20/201640 RPT#: [id number] DC DATE: STATUS: ADM IN [facility] [address] [place] [address] END OF REPORT
[2020-06-20 16:48] VITALS: BP 127/69
--- NOTE | 2020-06-20 16:51 | MORECARE ---
CASE MANAGEMENT DISCHARGE SUMMARY PATIENT: KHAI CHAMORRO UNIT: [id number] ADM DATE: 06/12/20 AGE: 79 : 39 SEX: F ROOM/BED: D.2220 AUTHOR: DREAD LADD PHYSICIAN: REFERRING PHYSICIAN: JOSE A ALBA DO DATE OF SERVICE: 06/20/20 Discharge Plan Patient Name: KHAI CHAMORRO Facility: [facility]:[place] : 1940 Planned Disposition: Halfway Facility Anticipated Discharge Date: Discharge Date: Expected LOS: Initial Reviewer: [email or web address] Initial Review Date: 06/12/2020 Generated: 06/20/20 5:50 pm Comments DCP- Discharge Planning Updated by [email or web address]: Tish Zuluaga on 06/20/20 3:[address] PATIENT WILL BE DISCHARGING TO [facility] TODAY THEN WILL GO TO [facility] I LET GILLIAN ([facility] ) KNOW THE CHANGE OF DISCHARGE & I ALSO LET JOSH KNOW IN RESIDENTIAL WHAT I HAD DONE. I STTEMPTED TO CALL PATIENT'S DAUGHTER SIMI BUT I DID NOT GET AN ANSWER DCP- Discharge Planning Updated by [id number]: Tish Zuluaga on 06/19/20 8:[address] GILLIAN WITH [facility] STATED THAT THEY WOULD ACCEPT THE PATIENT WHEN SHE IS STABLE. SHE WILL NEED A RAPID COVID PRIOR TO COMING I ATTEMPTED TO CALL EMELYN TO LET HER KNOW, BUT I DID NOT GET AN ANSWER NO MESSAGE LEFT DCP- Discharge Planning Updated by [email or web address]: Tish Zuluaga on 06/18/20 12:[address] Patient Name: KHAI CHAMORRO Admission Status: ER Accout number: [id number] Admission Date: 06-12-2020 : 1940 Admission Diagnosis:URINARY TRACT INFECTION, SITE NOT SPECIFIED Attending: JOSE A ALBA Current LOS: 6 Anticipated DC Date: Planned Disposition: Halfway Facility Primary Insurance: MEDICARE A & B Discharge Planning Comments: CM spoke with patient's daughter, Simi to discuss discharge planning needs. Simi stated that her mom lives with her spouse where she has been partially dependent for the past 2 years. Simi has been coming to the house every weekend to help her mom with baths. Simi stated that her dad helps her during the week when needed. She has homeO2 from [facility] and they had just ordered her mom a walker to use at home. Per Simi she has never been admitted to the hospital and didn't take any medications. Simi would like her mom to go t [facility] for rehab. SWETHA obtained over the phone. I have called Gillian with [facility] and faxed the referral to her. CM will wait to hear back from them about the referral. CM to follow and assist as needed Branch Operations Manager: Tish Zuluaga DCPIA - Discharge Planning Initial Assessment Updated by [email or web address]: Tish Zuluaga on 06/18/20 1:38 pm * Is the patient Alert and Oriented? Yes * How many steps to enter\exit or inside your home? * PCP [facility]ER * [facility] * Preadmission Environment Home with Family * ADLs Partial Dependent * Partial ADLs (Assistance needed) Ambulation Bathing * Equipment Oxygen * Other Equipment HAS ORDERED A WALKER * List name and contact numbers for known caregivers / representatives who currently or will assist patient after discharge: SIMI ESTES ( DAUGHTER) [phone] * Verbal permission to speak to the caregivers and representatives has been obtained from the patient. N/A * Community resources currently utilized None * Additional services required to return to the preadmission environment? Yes * Can the patient safely return to the preadmission environment? No * Has this patient been hospitalized within the prior 30 days at any hospital? No Coverage Notice Reviewer: [id number] - Tish Zuluaga Notice Issued Date-Time: 06/18/2020 13:44 Notice Type: Patient Choice Letter Notice Delivered To: Family Member Relationship to Patient: Daughter Campus Rep Name: SIMI Delivery Method: HAND - Hand Delivered Alpa Days: Prior Verbal Notification: Recipient Understood Notice: Yes Recipient Signature: Yes Med Rec Note Co-signed by Attending: Coverage Notice Comment: SWETHA FOR [facility] Last DP export: 06/20/20 3:42 pm Patient Name: KHAI CHAMORRO Page [phone] at 1651 All edits/amendments must be made on the electronic document DICTATION DATE: 06/20/201649 SAND MILL GRINDER: CLEVE 06/20/201649 RPT#: [id number] DC DATE: STATUS: ADM IN [facility] [address] [place] [address] END OF REPORT
--- NOTE | 2020-06-20 19:30 | NUR ---
REPORT CALLED TO [facility] ON CUSTODIAL. PATIENT WILL GO TO ROOM 1133.
--- NOTE | 2020-06-20 19:36 | NUR ---
CALL TO DAUGHTER EMELYN [phone]. DAUGHTER INFORMED OF PATIENT BEING MOVED TO ROOM 1133.
--- NOTE | 2020-06-20 20:02 | NUR ---
LEFT UNIT VIA WHEELCHAIR FOR SENIOR UNIT
[2020-06-20] MEDS ORDERED: ZOFRAN ODT4 MG/UDTAB PO (21:16)
[2020-06-20] MEDS ORDERED: DIFLUCAN150 MG PO (21:16)
[2020-06-20] MEDS ORDERED: REMERON15 MG PO (21:17)
[2020-06-20] MEDS ORDERED: FUROSEMIDE20 MG PO (21:17)
--- NOTE | 2020-06-21 10:38 | MORECARE ---
CASE MANAGEMENT DISCHARGE SUMMARY PATIENT: KHAI CHAMORRO UNIT: [id number] ADM DATE: 06/12/20 AGE: 79 : 39 SEX: F ROOM/BED: D.2220 AUTHOR: DREAD LADD PHYSICIAN: REFERRING PHYSICIAN: JOSE A ALBA DO DATE OF SERVICE: 06/21/20 Discharge Plan Patient Name: KHAI CHAMORRO Facility: [facility]:[place] : 1940 Planned Disposition: Custodial Facility Anticipated Discharge Date: Discharge Date: 06/20/2020 Expected LOS: Initial Reviewer: [email or web address] Initial Review Date: 06/12/2020 Generated: 06/21/20 11:37 am Comments DCP- Discharge Planning Updated by [email or web address]: Tish Zuluaga on 06/20/20 3:[address] PATIENT WILL BE DISCHARGING TO [place] TODAY THEN WILL GO TO [facility] I LET GILLIAN ([facility] ) KNOW THE CHANGE OF DISCHARGE & I ALSO LET JOSH KNOW IN [place] WHAT I HAD DONE. I STTEMPTED TO CALL PATIENT'S DAUGHTER SIMI BUT I DID NOT GET AN ANSWER DCP- Discharge Planning Updated by [email or web address]: Tish Zuluaga on 06/19/20 8:[address] GILLIAN WITH [facility] STATED THAT THEY WOULD ACCEPT THE PATIENT WHEN SHE IS STABLE. SHE WILL NEED A RAPID COVID PRIOR TO COMING I ATTEMPTED TO CALL EMELYN TO LET HER KNOW, BUT I DID NOT GET AN ANSWER NO MESSAGE LEFT DCP- Discharge Planning Updated by [email or web address]: Tish Zuluaga on 06/18/20 12:[address] Patient Name: KHAI CHAMORRO Admission Status: ER Accout number: [id number] Admission Date: 06-12-2020 : 1940 Admission Diagnosis:URINARY TRACT INFECTION, SITE NOT SPECIFIED Attending: JOSE A ALBA Current LOS: 6 Anticipated DC Date: Planned Disposition: Custodial Facility Primary Insurance: MEDICARE A & B Discharge Planning Comments: spoke with patient's daughter, Simi to discuss discharge planning needs. Simi stated that her mom lives with her spouse where she has been partially dependent for the past 2 years. Simi has been coming to the house every weekend to help her mom with baths. Simi stated that her dad helps her during the week when needed. She has homeO2 from [facility] and they had just ordered her mom a walker to use at home. Per Simi she has never been admitted to the hospital and didn't take any medications. Simi would like her mom to go t [facility] for rehab. SWETHA obtained over the phone. I have called Gillian with [facility] and faxed the referral to her. CM will wait to hear back from them about the referral. CM to follow and assist as needed Compounder: Tish Zuluaga DCPIA - Discharge Planning Initial Assessment Updated by [email or web address]: Tish Zuluaga on 06/18/20 1:38 pm * Is the patient Alert and Oriented? Yes * How many steps to enter\exit or inside your home? * PCP VERSER * [facility]acy [facility] * Preadmission Environment Home with Family * ADLs Partial Dependent * Partial ADLs (Assistance needed) Ambulation Bathing * Equipment Oxygen * Other Equipment HAS ORDERED A WALKER * List name and contact numbers for known caregivers / representatives who currently or will assist patient after discharge: SIMI ESTES ( DAUGHTER) [phone] * Verbal permission to speak to the caregivers and representatives has been obtained from the patient. N/A * Community resources currently utilized None * Additional services required to return to the preadmission environment? Yes * Can the patient safely return to the preadmission environment? No * Has this patient been hospitalized within the prior 30 days at any hospital? No Coverage Notice Reviewer: [id number] - Tish Zuluaga Notice Issued Date-Time: 06/18/2020 13:44 Notice Type: Patient Choice Letter Notice Delivered To: Family Member Relationship to Patient: Daughter Adjuster Leader Name: SIMI Delivery Method: HAND - Hand Delivered Alpa Days: Prior Verbal Notification: Recipient Understood Notice: Yes Recipient Signature: Yes Med Rec Note Co-signed by Attending: Coverage Notice Comment: SWETHA FOR [facility] Last DP export: 06/20/20 3:51 pm Patient Name: KHAI CHAMORRO Page [phone] at 1038 All edits/amendments must be made on the electronic document DICTATION DATE: 06/21/20 1037 SUPERVISING FIRE MARSHAL: DM 06/21/20 1037 RPT#: [id number] DC DATE:06/20/20 STATUS: DIS IN [facility] [address] [place] [address] END OF REPORT
== END 2020-06-20 20:02 | DRG 689 ==
LOC: D.ER 12:57 → D.EDHOLD 18:02 → D.MS 18:02
PROVIDERS: Emergency Medicine; Family Medicine; ADMIT Family Medicine; ATTEND Family Medicine
DX: N39.0 Urinary tract infection, site not specified (principal); G93.41 Metabolic encephalopathy; I63.9 Cerebral infarction, unspecified; E11.9 Type 2 diabetes mellitus without complications; J43.9 Emphysema, unspecified; E87.6 Hypokalemia; L89.309 Pressure ulcer of unspecified buttock, unspecified stage; F03.90 Unspecified dementia, unspecified severity, without behavioral disturbance, psychotic disturbance, mood disturbance, and anxiety

== ENCOUNTER 2020-06-20 20:08 | Inpatient (IN) | payer MEDICARE, MEDICAID ==
--- NOTE | ~2020-06-20 | PN ---
PATIENT:KHAI CHAMRORO MEDICAL RECORD: [id number] LOCATION:[facility] ADMISSION DATE: 06/20/20 PROGRESS NOTE DATE OF SERVICE: 06/28/2020 SUBJECTIVE: The patient is 79 years old and she was admitted to the hospital because of aggression. She currently is not eating well and she is sleeping only marginally well. She has very little interaction and is withdrawn and blunted. ASSESSMENT: Vascular dementia. PLAN: I believe the patient's current condition is related to an advanced cognitive decline and not some underlying medical or neurologic disorder of some other kind. It is also not related to some sort of a mood disorder. Unfortunately, I think her prognosis is poor, especially if we cannot get adequate nutrition into her. I have reviewed current medications and I am going to maintain them with only minor adjustments. TRANSINT:[id number] Voice Confirmation ID: [id number] DOCUMENT ID: [id number] EFREN HECK MD CC: [id number] DICTATION DATE: 06/28/201733 ON CALL: 06/28/202115 ADM IN [facility] [address] [id number]
[~2020-06-20 20:08] MED LIST: FLORAJEN3 CAPS460 MG PO; FLUCONAZOLE150 MG PO; FUROSEMIDE20 MG PO; GEODON20 M1 IM; HUMULIN R100 UNIT/1 SC; LOVENOX40 MG/0.4 SC; PERPHENAZINE2 MG PO; REMERON15 MG PO; ZOFRAN4 MG PO
[2020-06-20 20:10] VITALS: BP 120/68
[2020-06-20] MEDS ORDERED: HUMULIN R100 UNIT/1 SC (21:13)
[2020-06-20] MEDS ORDERED: PERPHENAZINE2 MG PO (21:14)
[2020-06-20] MEDS ORDERED: LOVENOX40 MG/0.4 SC (21:14)
[2020-06-20] MEDS ORDERED: FLORAJEN3 CAPS460 MG PO (21:15)
[2020-06-20] MEDS ORDERED: DIFLUCAN150 MG PO (21:16)
[2020-06-20] MEDS ORDERED: GEODON20 M1 IM (21:16)
[2020-06-20] MEDS ORDERED: ZOFRAN ODT4 MG/UDTAB PO (21:16)
[2020-06-20] MEDS ORDERED: REMERON15 MG PO (21:17)
[2020-06-20] MEDS ORDERED: FUROSEMIDE20 MG PO (21:17)
--- NOTE | 2020-06-20 21:23 | NUR ---
PT ADMIT TO [place] FROM [facility]. ACCOMPANIED WITH HOSPITAL STAFF. SHE HAS ONE BAG OF BELONGINGS THAT HAVE BEEN INVENTORIED AND PLACED IN STORAGE. SHE IS ALERT AND ORIENTED TO SELF ONLY. SHE IS UNCERTAIN IF SHE IN A HOSPITAL. CALM BUT STATES" I DONT KNOW IF I WANNA BE HERE." SPOKE WITH DAUGHTER EMELYN ESTES AT [phone]. DAUGHTER RELATES THAT SHE IS A FULL CODE. SHE RELATES THAT SHE HASNT HAD A PNEUMONIA SHOT BUT SHE MIGHT WANT ONE WHILE SHE IS HERE. UPDATED DAUGHTER ON POLICYS AND PROVIDED PASS CODE.
[2020-06-21 00:47] VITALS: BP 120/68; BMI 17.1
--- NOTE | 2020-06-21 02:31 | NUR ---
PT RESTLESS AND STATES "I CANT SLEEP. IM HURTING AND ANXIOUS." ADMINISTERED PRN ATIVAN 0.5MG PO AND ULTRAM 50 MG PO PER ORDERS. WILL CONTINUE TO MONITOR.
--- NOTE | 2020-06-21 03:00 | NUR ---
PT RESTING CALMLY IN BED WITH EYES CLOSED. NO SIGNS OF DISTRESS NOTED.
--- NOTE | 2020-06-21 06:27 | NUR ---
COVID SWAB COLLECTED PER POLICY AND SENT TO LAB.
[2020-06-21 07:14] LABS: BASOPHILS 0.4 % (0-2); EOSINOPHILS 0.9 % (0-7); HEMATOCRIT 30.3 % (36.0-48.0); HEMOGLOBIN 10.2 g/dL (12-16); IMMATURE GRANULOCYTES 0.2 % (0-5); LYMPHOCYTES 36.6 % (15-50); MCH 31.3 pg (26.0-34.0); MCHC 33.7 g/dL (31.0-37.0); MCV 92.9 fL (80.0-100.0); MEAN PLATELET VOLUME 9.6 fL (7.4-10.4); MONOCYTES 14.8 % (2-11); NEUTROPHIL ABS# 2.57 10x3/uL (1.56-6.13); NEUTROPHILS 47.1 % (40-80); PLATELET COUNT 345 10x3/uL (130-400); RBC 3.26 10x6/uL (4.00-5.40); RDW 12.4 % (11.5-14.5); WBC 5.5 10x3/uL (4.8-10.8)
[2020-06-21 08:15] LABS: ALBUMIN 2.1 g/dL (3.4-5.0); ANION GAP 8.7 mmol/L (8-16); BILIRUBIN - TOTAL 0.2 mg/dL (0.2-1.3); CALCIUM 8.9 mg/dL (8.5-10.1); CHOL - HDL RATIO 3.6 ratio (2.3-4.1); CREATININE - SERUM 0.8 mg/dL (0.6-1.3); LDL-HDL RATIO 2.1 ratio (1.5-3.5); POTASSIUM - SERUM 3.7 mmol/L (3.5-5.1); PROTEIN - SERUM 6.2 g/dL (6.4-8.2); THYROID STIMULATING HORMONE 0.9 uIU/mL (0.36-3.74)
[2020-06-21 13:13] VITALS: Wt 39.7 kg
--- NOTE | 2020-06-21 19:13 | NUR ---
Patient rec'd this am lying in bed. She is A/O times 1 to person. She is on droplet precautions due to covid testing...PUI. She is incontinent of urine. She has skin breakdown to coccyx and buttocks. She is resistant to care and attempted to bite, slap, hit, and kick the staff during ADL care. She has plus 1 to plus 2 kaylynn. edema to feet and ankles. She cannot walk and requires 2 person transfer to w/c. She is difficult to direct and redirect.
[2020-06-21 20:00] VITALS: BP 126/43
--- NOTE | 2020-06-21 20:36 | NUR ---
SPOKE WITH ALYCIA WILLIAN, AND POA. VERBAL CONSENT OBTAINED. RELATED THAT SHE WISHES TO BE A DNR. PAPERWORK IN CHART. SPOUSE CONTACT NUMBER IS [phone]. INFORMED OF POLICIES AND PROCEDURES. PROVIDED WITH PASSCODE:[id number].
--- NOTE | 2020-06-21 21:52 | NUR ---
RECEIVED PATIENT IN HER ROOM SITTING IN HER WHEELCHAIR, SHE WAS MILDLY AGGRESSIVE WHILE GETTING HER VITAL SIGNS, SHE IS CONFUSED, SHE CAN MAKE SIMPLE NEEDS KNOWN. WILL FOLLOW POC
[2020-06-22 06:11] LABS: RAPID PLASMA REAGIN Non Reactive (Non Reactive)
--- NOTE | 2020-06-22 19:08 | NUR ---
PT HAS REFUSED MEDICATIONS ALL DAY. EDUCATION WAS PROVIDED ON IMPORTANCE OF MEDICATION ADHERENCE. STILL REFUSED. REFUSAL OF CARE EVIDENCE BY PATIENT REFUSING BATH, AND REFUSING TO BE HELPED FROM WHEELCHAIR BACK TO BED. STAYS IN ROOM WITH HEAD DOWN ON TABLE. WISHES TO NOT SOCIALIZE.
[2020-06-22 20:00] VITALS: BP 136/61
--- NOTE | 2020-06-23 02:51 | NUR ---
RECEIVED PATIENT IN HER ROOM, SHE IS QUIET, NO MEDS DUE ON PM SHIFT, SHE IS CONFUSED AND BECOMES AGITATED WHEN SHE IS "BOTHERED". WILL FOLLOW POC
--- NOTE | 2020-06-23 11:57 | NUR ---
TRIED MEDS IN JELLO, PATIENT REFUSED, ATTEMPTED A SECOND TIME, PATIENT SPIT CRUSHED MEDS OUT. PATIENT WILL EAT JELLO.
--- NOTE | 2020-06-23 17:20 | NUR ---
NURSE SPOKE WITH FRANCO FENTON AT THIS TIME. PASSCODE GIVEN. HE WANTED TO KNOW HOW SHE WAS DOING, WHAT WE WERE DOING WITH HER. NURSE STATED SHE WAS STILL AGITATED WITH CARE AT TIMES. THE DOCTOR WAS STILL MAKING MEDICATIONS ADJUSTMENTS AT THIS TIME SO WE HAVE TO GIVE THE MEDICATION MORE TIME TO HAVE MORE EFFECT. IT DOES TAKE SOME TIME TO MAKE ADJUSTMENTS BUT WHEN THE MEDICATION TAKE EFFECT IT WILL BE A DIFFERENCE. HE REQUESTED IF WE CAN NOT REACH THE MAIN CONTACT TO GIVE HIM A CALL PLEASE. SHE RAISED HIM FROM WHEN HE WAS KID AND WANTED TO BE KEPT IN TOUCH. HE BECAME TEARFUL AND ASKED NURSE TO GO TELL HER HE LOVES HER. NURSE STATED SHE WOULD DO THAT FOR HIM. NURSE TOLD PT AT THIS TIME. SHE SMILED AND SAID REALLY?"
--- NOTE | 2020-06-23 17:37 | NUR ---
PATIENT CONFUSED. BECOMES AGITATED AND COMBATIVE WITH CARE. MEDS ADMIN PER ORDERS WITH COMPLETE MED COMPLIANCE NOTED. CONTINUE PLAN OF CARE PREVIOUSLY OUTLINED.
--- NOTE | 2020-06-23 18:49 | NUR ---
NURSE AND MHT ASSISTED TO TOILET AT THIS TIME. PT CURSED A COUPLE OF TIMES BUT WAS ABLE TO REDIRECT PT. SHE ALLOWED STAFF TO DRESS HER AT THIS TIME. PT SPOKE WITH SON AT THIS TIME AND DAUGHTER AT THIS TIME. SHE WAS IN A GOOD MOOD AT THAT TIME. SHE REMEMBERED THE SON LAST NAME AND ASKED TO SPEAK TO HIM. NURSE CALLED FRANCO FENTON BACK AT THIS TIME. HE WAS VERY EXCITED TO HEAR THAT SHE WAS UP AND WANTED TO TALK TO HIM. HE THANKED NURSE.
[2020-06-23 20:00] VITALS: BP 116/48
--- NOTE | 2020-06-24 01:08 | NUR ---
PATIENT RECEIVED ON UNIT, QUIET, CONFUSED. COMPLIANT WITH HER SEROQUEL. BECOMES AGITATED VERY EASILY. CAN MAKE SIMPLE NEEDS KNOWN. WILL FOLLOW POC
[2020-06-24 15:53] VITALS: BP 110/52
--- NOTE | 2020-06-24 17:45 | NUR ---
RECEIVED IN PATIENT ROOM. SITTING ON SIDE OF BED. CALM AND COOPERATIVE WITH CARE AND ASSESSMENT. AGGRESSIVE WITH REDIRECTION. REDIRECT AND REORIENT NEEDED. EATING DINNER AT THIS TIME. CONITNUE PLAN OF CARE.
--- NOTE | 2020-06-24 20:20 | NUR ---
RECEIVED IN HALLWAY. SITTING IN A WHEELCHAIR WITH PEERS AT HER SIDE. CALM AND COOPERATIVE WITH CARE AND ASSESSMENT. NO SIGNS OF AGGRESSION. REDIRECT AND REORIENT NEEDED. CONTINUES TO SIT IN HALLWAY WITH PEERS. CONTINUE PLAN OF CARE.
[2020-06-24 22:24] VITALS: BP 103/42
[2020-06-25 08:00] VITALS: BP 129/50
--- NOTE | 2020-06-25 13:27 | PSY ---
PATIENT NAME:KHAI CHAMORRO MEDICAL RECORD: [id number] : 38 LOCATION:[facility] ADMISSION DATE: 06/20/20 ACCOUNT: [id number] PSYCHIATRIC EVALUATION DATE OF EVALUATION: 06/21/20 IDENTIFYING DATA: The patient is 79 years old and she is admitted to the hospital on a voluntary basis. CHIEF COMPLAINT: Aggression and confusion. HISTORY OF PRESENT ILLNESS: The patient has recently been hospitalized secondary to urinary tract infection and delirium. She has had her medications reviewed and her underlying metabolic and infectious symptoms treated, but she continues to be intermittently aggressive and is most certainly quite impaired cognitively. She has been very agitated and has a history of dementia. PAST MEDICAL HISTORY: Significant for diabetes, emphysema and a recent urinary tract infection. PAST PSYCHIATRIC HISTORY: Significant for an established diagnosis of dementia. FAMILY HISTORY: Unknown. ALLERGIES: No known drug allergies. CURRENT MEDICATIONS: Include Diflucan, Geodon, Lovenox, Zofran, Remeron, Trilafon, insulin, Lovenox. SOCIAL HISTORY: The patient is . She has no history of drug or alcohol abuse. She is unable to tell me much about her longitudinal history. MENTAL STATUS EXAMINATION: The patient is awake, alert and oriented to person and place, but not to time or situation. Her mood is flat. Her affect is appropriate. Thought processes are circumstantial. Memory, concentration and abstraction abilities are impaired and she denies any intent to harm herself or others as well as any overt psychotic symptoms. ASSETS: Supportive family members. LIABILITIES: Limited insight. DIAGNOSTIC IMPRESSION: AXIS I: Major vascular neurocognitive disorder. AXIS II: None. AXIS III: Diabetes, status post stroke, urinary tract infection, emphysema. AXIS IV: Moderate stressors. AXIS V: Global assessment of function is 30. PLAN: At this time, the patient is admitted to the hospital secondary to confusion and aggressive behavior associated with a dementing illness. She will be treated with both mood stabilizing and memory enhancing medications. Her long-term prognosis is guarded. TRANSINT:[id number] Voice Confirmation ID: [id number] DOCUMENT ID: [id number] EFREN HECK MD at 1327 CC: [id number] DICTATION DATE: 06/21/20 9337 MICROCOMPUTER TECHNICIAN: 06/21/202004 ADM IN [facility] [address] [place] [address]
--- NOTE | 2020-06-25 13:58 | NUR ---
Nutrition Follow-up: Diet: Regular PO intake: ~27% average x last 9 meals. However, PO intake has been 50-100% x last 3 meals yesterday. Last BM: 06/25/20 x 2. Wt: 89.4# (06/24/20); Admit Wt: 96# (06/20/20) Meds noted: megace ES, metformin, SSI, lasix Labs noted: POC Glu 120(H) Skin: stage I PU x 2 (left and right buttocks) Noted -6.6# x 5 days. Patient has been with inadequate oral/energy intake since admit. PO intake appears to have increased recently. If PO does not begin to trend consistently >50%, RD recommend MD to consider PEG placement for long-term nutrition support. RD will follow-up 06/27/20.
--- NOTE | 2020-06-25 17:45 | NUR ---
RECEIVED IN PATIENT ROOM. RESTING IN BED WITH EYES OPEN. CALM AND COOPERATIVE WITH ASSESSMENT. AGGRESSIVE WITH CARE. REDIRECT AND REORIENT NEEDED. EATING DINNER AT THIS TIME. CONTINUE PLAN OF CARE.
[2020-06-25 20:52] VITALS: BP 119/44
--- NOTE | 2020-06-25 20:59 | NUR ---
RECEIVED IN BEDROOM. RESTING IN BED WITH EYES CLOSED. RESPONDS TO VOICE. CALM AND COOPERATIVE WITH CARE AND ASSESSMENT. MORE RESPONSIVE TO VERBAL COMMUNICATIONS TODAY. NO SIGNS OF AGGRESSION. REDIRECT AND REORIENT NEEDED.RESTING IN BED WITH EYES CLOSED AT THIS TIME. CONTINUE PLAN OF CARE.
--- NOTE | 2020-06-26 08:00 | NUR ---
RECEIVED PATIENT IN BED WITH EYES CLOSED. PATIENT RESPONDS TO VERBAL STIMULI AT THIS TIME. ASSESSMENT COMPLETED. PRESCRIBED MEDICATIONS PROVIDED ORDERED. PATIENT IS MED COMPLIANT IF MEDS ARE CRUSHED IN PUDDING PER STAFF. PATIENT IS AWAKE AND ALERT TO PERSON ONLY. REDIRECT AND REORIENT NEEDED. PATIENT CAN BECOME AGGRESSIVE AND COMBATIVE WITH STAFF. PATIENT HAS POOR APPETITE NOTED. FALL PRECAUTIONS IN PLACE FOR SAFETY. WILL CONTINUE PLAN OF CARE.
[2020-06-26 08:05] VITALS: BP 128/42
[2020-06-26 20:00] VITALS: BP 131/51
--- NOTE | 2020-06-26 20:57 | NUR ---
RECEIVED IN BEDROOM. RESTING IN BED WITH EYES CLOSED. RESPONSD TO VOICE. CALM AND COOPERATIVE WITH CARE AND ASSESSMENT. NO SIGNS OF AGGRESSION. REDIRECT AND REORIENT NEEDED. CONTINUES TO REST QUIETLY IN BED. CONTINUE PLAN OF CARE.
--- NOTE | 2020-06-27 08:14 | PN ---
PATIENT:KHAI CHAMORRO MEDICAL RECORD: [id number] LOCATION:[facility] ADMISSION DATE: 06/20/20 PROGRESS NOTE DATE OF SERVICE: 06/26/2020 SUBJECTIVE: The patient's case was discussed with staff. She has no new complaint. OBJECTIVE: The patient denies that she would seek to harm herself or others. She is tolerating her medicines well, but not eating adequately. ASSESSMENT: Dementia is fairly advanced. PLAN: I am going to stop the Risperdal since she is sleeping very well and not aggressive. I am also going to start her on Namenda. TRANSINT:[id number] Voice Confirmation ID: [id number] DOCUMENT ID: [id number] EFREN HECK MD at 0814 CC: [id number] DICTATION DATE: 06/26/20 154 MOLDER FOAM RUBBER: 06/27/20 0007 ADM IN [facility] [address] [place] [address]
[2020-06-27 10:45] VITALS: BP 135/51
--- NOTE | 2020-06-27 13:45 | NUR ---
Nutrition Re-Assessment Poor appetite and continues with diarrhea per MD notes. Diet: Diabetic PO intake: ~28% average x last 9 meals Last BM: 06/27/20 Wt: 89.4# (06/24/20); Admit Wt: 96# (06/21/20) Meds noted: megace ES (started 06/23/20), metformin, SSI, lasix Labs noted: POC Glu 101(WNL)-06/27/20 Skin: stageI/II PU to left and right buttocks Estimated nutrition needs and nutrition diagnosis remain unchanged for initial nutrition assessment at this time. Patient is not progressing towards meeting nutrition goals at this time. Noted -6.6# weight loss since admit. Recommendations/Interventions: -Recommend MD to consider PEG placement for long-term nutrition. -RD is available for TF recommendations if needed. -For now, recommend continue current diet. Will add Glucerna TID. -RD will follow-up 06/29/20.
--- NOTE | 2020-06-27 16:43 | NUR ---
Patient rec'd this am in bed in her room. She attempts to be non-compliant with her meds. She will refuse them before they are even offered. They are crushed and placed in food. She often refused food, meds, and any treatment with ADLS or therapy. She did participate in group activities/therapy but with lots of persuasion. She participated very little. She was given praise and postive feedback with what she did participate in.
[2020-06-27 20:00] VITALS: BP 109/68
--- NOTE | 2020-06-27 22:28 | NUR ---
RECEIVED PATIENT IN HALLWAY SITTING IN WHEELCHAIR WITH PEERS. SHE IS VERY VERY CONFUSED, SHE WAS COMPLIANT WITH HER MED (CRUSHED IN PUDDING), SHE NEVER WANTS TO TAKE HER MEDICINE. SHE WAS COMBATIVE IN THE SHOWER. WILL FOLLOW POC
--- NOTE | 2020-06-28 16:01 | PN ---
PATIENT:KHAI CHAMORRO MEDICAL RECORD: [id number] LOCATION:[facility] ADMISSION DATE: 06/20/20 PROGRESS NOTE DATE OF SERVICE: 06/27/2020 SUBJECTIVE: The patient's case was discussed with staff. She has no new complaint. OBJECTIVE: The patient denies intent to harm herself or others. She is impaired cognitively, but has not been significantly disruptive. ASSESSMENT: Vascular dementia. PLAN: Current medicines have been reviewed and will be maintained. Long-term prognosis is guarded. TRANSINT:[id number] Voice Confirmation ID: [id number] DOCUMENT ID: [id number] EFREN HECK MD at 1601 CC: [id number] DICTATION DATE: 06/27/20 1700 OUTREACH LIBRARIAN: 06/27/20 2340 ADM IN [facility] [address] [place] [address]
--- NOTE | 2020-06-28 18:27 | NUR ---
Patient rec'd this am up in a w/c. She participated a little in group/therapy and activities. She has confusion, aggressive and often refuses ADLs and meds. She is non-compliant with medications.
--- NOTE | 2020-06-28 18:28 | NUR ---
Rec'd patient this am in his room. He is A/O times 3 to person, place,and situation. He likes to stay in his room by himself. He is Delusional but is very pleasant,calm, and coorperative. He is med compliant.
--- NOTE | 2020-06-28 18:34 | NUR ---
Last note above is error in documentation.
[2020-06-28 20:00] VITALS: BP 114/51
--- NOTE | 2020-06-29 01:01 | NUR ---
B) Patient is alert and oriented to person, calm and cooperative this shift, I) Administered scheduled medications as ordered, assisted with needs, monitored for safety R) Medication compliant, quiet and sits with out talking in hallway, now sleeping quietly, P) Continue plan of care.
[2020-06-29 09:10] VITALS: BP 134/73
[2020-06-29 10:55] VITALS: BP 134/87
--- NOTE | 2020-06-29 10:56 | NUR ---
CHERELLE RECEIVED A VOICEMAIL ON 06/28 FROM PT'S DTR, YANE, STATING SHE WAS RETURNING SW'S CALL FROM VOICEMAIL CHERELLE LEFT DAYS AGO TO GET INFORMATION FOR ASSESSMENT. CHERELLE ATTEMPTED TO CONTACT DTR 4XS AT [phone] AND DIDN'T RECEIVE CALL BACK UNTIL YESTERDAY. CHERELLE GOT INFORMATION FROM PT'S SON, FRANCO, WHO LEFT HIS NAME AND NUMBER WITH NURSE. FRANCO ASKED ABOUT VISITATION AND CHERELLE ALERTED HIM VISITATION WOULD BE STARTING BACK UP THIS WEEK. FRANCO STATED HE WOULD GET IN CONTACT WITH HIS SISTER WHEN CHERELLE EXPLAINED SHE WAS UNABLE TO REACH HER. FRANCO STATED HE WOULD LET THE FAMILY KNOW VISITATION TIMES AND DAYS. CHERELLE EXPLAINED ONE VISITOR ON UNIT AT A TIME AND THE PROTOCOL TO GET IN THE UNIT. FRANCO VOICED UNDERSTANDING ON 06/26. YANE LEFT MESSAGE TO CALL HER WITH [facility] THIS MORNING. CHERELLE ATTEMPTED CALL BACK AND LEFT ANOTHER VM. CHERELLE EXPLAINED HISTORY WAS GIVEN AND CONVERSATION ON DISCHARGE PLANNING IS NEEDED. CHERELLE STATED IF SHE CANNOT RETURN PHONE CALL TODAY, IT WOULD BE OK TO HAVE THIS DISCUSSION ON THURSDAY.
--- NOTE | 2020-06-29 13:38 | NUR ---
Nutrition Follow-up: Diet: Diabetic + Glucerna TID PO intake: ~29% average x last 9 meals. Does not appear to be drinking oral nutrition supplement per nursing flowsheet Last BM: 06/29/20 Wt: 89.4# (06/24/20), 96# (06/20/20) Meds noted: megace ES (started 06/23/20), metformin, SSI Labs noted: POC Glu 125(H) Recommend MD to consider PEG placement for long-term nutrition. RD available if TF recommendations needed. RD will follow-up 07/04/20.
[2020-06-29 20:00] VITALS: BP 148/57
--- NOTE | 2020-06-29 22:40 | NUR ---
PT IS ALERT AND ORIENTED TO SELF ONLY. POOR INSIGHT INTO HER SITUATION. RECEIVED IN BED RESTING CALMLY. COMPLIANT WITH ALL MEDICATIONS. NO AGGRESSION NOTED WITH STAFF. EASY TO REDIRECT. MONITOR FOR SAFETY.
[2020-06-30 07:38] VITALS: BP 140/50
--- NOTE | 2020-06-30 14:02 | NUR ---
The patient is sleepy this am, but she has awakened to eat, she does not like to take her meds, but the medication nurse crushed her meds and gave it to her in chocolate pudding. She knows her name, but not place or time. She has poor insight into her situation. She has been irritable at times, but she has not been physically aggressive. She is in a w/c, she needs assist to transfer. Continue POC.
[2020-06-30 20:00] VITALS: BP 137/57
--- NOTE | 2020-06-30 21:48 | NUR ---
PT IS ALERT AND ORIENTED TO SELF ONLY. RECEIVED IN A WHEELCHAIR IN HALLWAY OUTSIDE THE NURSES STATION ASLEEP. PT REQUIRED MINIMAL ENCOURAGEMENT TO TAKE MEDICATIONS. UNSTEADY GAIT. DENIES ANY NEEDS OR WANTS AT THIS TIME. NO AGGRESSION. MONITOR FOR SAFETY.
[2020-07-01 08:39] VITALS: BP 110/60
--- NOTE | 2020-07-01 13:51 | NUR ---
Rec'd patient up in bed this am. She is A/O times 1 to person. She is non-compliant with medications and care. She will close her mouth and shake her head when meds offered. Meds are crushed and offered in foood such as pudding, ice cream, or applesauce. She also resist ADL care. Her daughter visited yesterday. She responds very little with any teaching or simple directions. She has a flat affect and will communicate very little with staff. She likes to stay in her room by herself and will communicate with staff very little. will continue to encourage patient to participate in care and take medications.
--- NOTE | 2020-07-01 20:47 | NUR ---
RECEIVED IN BEDROOM. RESTING IN BED WITH EYES CLOSED. RESPONDS TO VOICE. CALM AND COOPERATIVE WITH CARE AND ASSESSMENT. NO SIGNS OF AGGRESSSION. REDIRECT AND REORIENT NEEDED. CONTINUES TO REST QUIETLY IN BED. CONTINUE PLAN OF CARE.
[2020-07-01 21:31] VITALS: BP 142/49
--- NOTE | 2020-07-02 17:30 | NUR ---
RECEIVED IN PATIENT ROOM. CALM AND COOPERATIVE WITH ASSESSMENT. AGGRESSIVE WITH CARE. UNCOOPERATIVE. REDIRECT AND REORIENT NEEDEDED. EATING DINNER AT THIS TIME. CONTINUE PLAN OF CARE.
--- NOTE | 2020-07-02 21:23 | NUR ---
RECEIVED IN BEDROOM. RESTING IN BED WITH EYES CLOSED. RESPONDS TO VOICE. CALM AND COOPERATIVE WITH CARE AND ASSESSMENT. NO SIGNS OF AGGRESSION. REDIRECT AND REORIENT NEEDED. CONTINUES TO REST QUIETLY IN BEDROOM. CONTINUE PLAN OF CARE.
[2020-07-02 22:28] VITALS: BP 142/47
[2020-07-03 08:00] VITALS: BP 142/51
--- NOTE | 2020-07-03 11:57 | NUR ---
RECEIVED IN PATIENT ROOM. RESTING IN BED WITH EYES OPEN. CALM AND COOPERATIVE WITH ASSESSMENT. AGGRESSIVE WITH CARE. REDIRECT AND REORIENT NEEDED. EATING LUNCH AT THIS TIME. CONTINUE PLAN OF CARE.
--- NOTE | 2020-07-03 12:22 | NUR ---
tray room worker spoke to patient's daughter, Simi, about discharge planning needs. Patient will be going to [facility] for placement after discharge. Patient will discharge July 04. No other needs at this time were verbalized. Simi voiced understanding of discharge plans.
[2020-07-03 12:29] LABS: ALBUMIN 2.5 g/dL (3.4-5.0); ANION GAP 9.1 mmol/L (8-16); BILIRUBIN - TOTAL 0.25 mg/dL (0.2-1.3); CALCIUM 9.2 mg/dL (8.5-10.1); CARBON DIOXIDE 25.4 mmol/L (21.0-32.0); CREATININE - SERUM 0.9 mg/dL (0.6-1.3); POTASSIUM - SERUM 4.5 mmol/L (3.5-5.1); PROTEIN - SERUM 6.7 g/dL (6.4-8.2)
[2020-07-03 12:39] LABS: BASOPHILS 0.4 % (0-2); EOSINOPHILS 0.7 % (0-7); HEMOGLOBIN 11.4 g/dL (12-16); IMMATURE GRANULOCYTES 1.6 % (0-5); LYMPHOCYTE ABS# 2.72 10x3/uL (1.18-3.74); LYMPHOCYTES 22.3 % (15-50); MCH 31.4 pg (26.0-34.0); MCHC 34.5 g/dL (31.0-37.0); MCV 90.9 fL (80.0-100.0); MONOCYTES 8.6 % (2-11); NEUTROPHILS 66.4 % (40-80); PLATELET COUNT 399 10x3/uL (130-400); RBC 3.63 10x6/uL (4.00-5.40); RDW 12.5 % (11.5-14.5); WBC 12.2 10x3/uL (4.8-10.8)
[2020-07-03] MEDS ORDERED: LEXAPRO10 MG PO (17:25)
[2020-07-03] MEDS ORDERED: NAMENDA5 MG PO (17:25)
[2020-07-03] MEDS ORDERED: METFORMIN HCL500 M1 PO (17:25)
[2020-07-03] MEDS ORDERED: VITAMIN D PO (17:25)
[2020-07-03] MEDS ORDERED: MEGACE ES PO (17:25)
[2020-07-03] MEDS ORDERED: ACETAMINOPHEN325 MG PO (17:25)
--- NOTE | 2020-07-03 20:14 | NUR ---
RECEIVED IN BEDROOM. RESTING QUIETLY WITH EYES CLOSED. RESPONDS TO VOICE. CALM AND COOPERATIVE WITH CARE AND ASSESSMENT. NO SIGNS OF AGGRESSION. REDIRECT AND REORIENT NEEDED. CONTINUES TO REST QUIETLY IN BED. CONTINUE PLAN OF CARE.
[2020-07-03 21:38] VITALS: BP 137/41
[2020-07-04 08:07] LABS: SARS-CoV-2 ANTIGEN NEGATIVE- SARS-COV-2 (NEGATIVE)
[2020-07-04 09:36] VITALS: BP 110/54
--- NOTE | 2020-07-04 10:45 | NUR ---
PT DISCHARGED TO [facility] AT THIS TIME. ALL PAPERWORK FAXED AND COPY SENT WITH PT AT TIME OF DISCHARGE. PT TRANSPORTED VIA [facility] [employer] X 2. NO S/SX OF DISTRESS NOTED OR VOICED. REPORTED GIVEN SIDNEY WALDEN.
--- NOTE | 2020-07-04 12:36 | NUR ---
Nutrition Re-Assessment Diet: Regular + Ensure TID PO intake: ~48% average x last 6 meals (varied 0-100%) Last BM: 07/04/20 x 2 Wt: 87# (07/04/20); Admit Wt: 96# (06/20/20) Meds noted: Megace ES, metformin, SSI. Labs reviewed. Noted patient weight is -9# since admit. PO intake does appear to be somewhat improved since previous nutrition follow-up. However, patient continue to not meet estimated energy needs. Estimated nutrition needs and nutrition diagnosis remain unchanged from initial nutrition assessment at this time. Patient is not meeting nutrition goals at this time. Recommendations/Interventions: -Recommend continue unrestricted diet and oral nutrition supplements. -Recommend continue appetite stimulant. -MD may consider PEG placement for long-term nutrition goals and considering patient malnourished with continued weight loss. -RD will follow-up 07/06/20.
== END 2020-07-04 10:45 | DRG 884 ==
LOC: D.PSYCH 20:08
PROVIDERS: Family Medicine; ADMIT Psychiatry & Neurology Psychiatry; ATTEND Psychiatry & Neurology Psychiatry
DX: F01.51 Vascular dementia, unspecified severity, with behavioral disturbance (principal); G93.41 Metabolic encephalopathy; N39.0 Urinary tract infection, site not specified; I69.319 Unspecified symptoms and signs involving cognitive functions following cerebral infarction; E11.9 Type 2 diabetes mellitus without complications; J43.9 Emphysema, unspecified; Z20.822 Contact with and (suspected) exposure to COVID-19; E78.5 Hyperlipidemia, unspecified; E55.9 Vitamin D deficiency, unspecified; R63.0 Anorexia; K59.00 Constipation, unspecified; R19.7 Diarrhea, unspecified

== ENCOUNTER 2020-07-26 17:20 | Inpatient (IN) | payer MEDICARE ==
[~2020-07-26] VITALS: Ht 167.6 cm; Wt 40.9 kg
[~2020-07-26 17:20] MED LIST changes: +ACETAMINOPHEN325 MG PO; +DIFLUCAN150 MG PO; +LEXAPRO10 MG PO; +MEGACE ES PO; +METFORMIN HCL500 M1 PO; +NAMENDA5 MG PO; +VITAMIN D PO; +ZOFRAN ODT4 MG/UDTAB PO
--- NOTE | 2020-07-26 17:33 | NUR ---
PT DAUGHTER STATES THAT PT WILL NOT FATMATA MEDICATION, SHE IS NOT EATING, PT IS NOW INCONTINENT WITH BLADDER AND BOWEL, WILL NOT LET DAUHTER CLEAN HER UP, PT HAS DEMENTIA.
[2020-07-26 17:55] LABS: BASOPHILS 0.7 % (0-2); EOSINOPHILS 0.9 % (0-7); HEMATOCRIT 33.4 % (36.0-48.0); HEMOGLOBIN 11.1 g/dL (12-16); IMMATURE GRANULOCYTES 0.2 % (0-5); LYMPHOCYTE ABS# 1.68 10x3/uL (1.18-3.74); LYMPHOCYTES 30.1 % (15-50); MCH 31.4 pg (26.0-34.0); MCHC 33.2 g/dL (31.0-37.0); MCV 94.6 fL (80.0-100.0); MEAN PLATELET VOLUME 9.7 fL (7.4-10.4); MONOCYTES 12.3 % (2-11); NEUTROPHIL ABS# 3.12 10x3/uL (1.56-6.13); NEUTROPHILS 55.8 % (40-80); PLATELET COUNT 325 10x3/uL (130-400); RBC 3.53 10x6/uL (4.00-5.40); WBC 5.6 10x3/uL (4.8-10.8)
[2020-07-26 18:02] LABS: CALC OSMOLALITY 282 mosm/kg (275-300); CALCIUM 9.6 mg/dL (8.5-10.1); CARBON DIOXIDE 27.1 mmol/L (21.0-32.0); CHLORIDE - SERUM 106 mmol/L (98-107); CREATININE - SERUM 0.8 mg/dL (0.6-1.3); GLUCOSE 80 mg/dL (74-106); SODIUM 139 mmol/L (136-145); UREA NITROGEN 29 mg/dL (7-18); eGFR NON AFRICAN AMERICAN 73 mL/min (90-120)
[2020-07-26 18:30] VITALS: BP 176/76
[2020-07-26 18:34] LABS: ALBUMIN 2.7 g/dL (3.4-5.0); ALKALINE PHOSPHATASE 67 U/L (30-120); ALT (SGPT) 14 U/L (10-68); BILIRUBIN - TOTAL 0.36 mg/dL (0.2-1.3); CHOL - HDL RATIO 4.8 ratio (2.3-4.1); CHOLESTEROL, TOTAL 167 mg/dL (0-200); CKMB 0.5 U/L (0.0-3.6); CREATINE KINASE 7 UL (21-215); HDL CHOLESTEROL 35 mg/dL (32-96); INR 1.04 (0.85-1.17); LDL CHOLESTEROL 110 mg/dL (0-100); LDL-HDL RATIO 3.1 ratio (1.5-3.5); PROTEIN - SERUM 6.9 g/dL (6.4-8.2); PROTIME 12.5 SECONDS (11.6-15.0); THYROID STIMULATING HORMONE 0.73 uIU/mL (0.36-3.74); TRIGLYCERIDE 111 mg/dL (30-200)
[2020-07-26 18:35] LABS: APTT 26.1 SECONDS (22.8-39.4)
[2020-07-26 18:39] LABS: TROPONIN-I < 0.017 ng/mL (0.000-0.060)
[2020-07-26 18:40] LABS: BILIRUBIN NEGATIVE (NEGATIVE); KETONE NEGATIVE (NEGATIVE); NITRITE NEGATIVE (NEGATIVE); UROBILINOGEN NORMAL mg/dL (< 2)
[2020-07-26 18:47] LABS: UDS - AMPHET NEGATIVE QUAL (NEGATIVE); UDS - BARB NEGATIVE QUAL (NEGATIVE); UDS - BENZO NEGATIVE QUAL (NEGATIVE); UDS - COCAINE NEGATIVE QUAL (NEGATIVE); UDS - OPIATE NEGATIVE QUAL (NEGATIVE); UDS - PCP NEGATIVE QUAL (NEGATIVE); UDS - THC NEGATIVE QUAL (NEGATIVE)
[2020-07-26 19:30] VITALS: BP 179/67
[2020-07-26 20:00] VITALS: BP 173/68
--- NOTE | 2020-07-26 20:00 | NUR ---
CALLED TO LET THE KNOW ANOTHER EVAL WAS NEEDED
[2020-07-26 20:30] VITALS: BP 168/57
[2020-07-26 20:49] VITALS: BP 178/66
--- NOTE | 2020-07-26 22:48 | NUR ---
GAVE REPORT TO DEB CHRISTINE, STATES ROOM NUMBER IS 1124 AND GIVE HIM 15 TO GET ADMISSION TO PUT PT IN ROOM. AND I CAN SEND PT DOWN.
[2020-07-26 23:50] VITALS: BP 142/67; BMI 21.0
--- NOTE | 2020-07-26 23:57 | NUR ---
PATIENT ARRIVED FROM OUR E.D. AT 2330 VSS, CONSENT FROM YANE JORDONH DAUGHTER AND POA FOR ADMIT, CODE STATUS IS FULL CODE, HERE FOR CONFUSION AND REFUSING CARE AT HOME, PHYSICAN AWARE OF ARRIVAL.
[2020-07-27 06:52] LABS: CHOL - HDL RATIO 4.7 ratio (2.3-4.1); LDL-HDL RATIO 3.1 ratio (1.5-3.5); THYROID STIMULATING HORMONE 0.89 uIU/mL (0.36-3.74)
[2020-07-27 07:48] VITALS: BP 150/56
--- NOTE | 2020-07-27 09:39 | NUR ---
obtained covid swab. pt did not tolerate well.
[2020-07-27 10:46] LABS: SARS-CoV-2 ANTIGEN NEGATIVE- SARS-COV-2 (NEGATIVE)
--- NOTE | 2020-07-27 11:50 | NUR ---
PT LAYING IN BED WITH EYES CLOSED. PT WAS CALM WITH STAFF WHEN AWAKE. FLAT AFFECT NOTED. CONFUSED AND ALERT TO SELF ONLY. SARS-19 SWAB NEGATIVE AT THIS TIME. REDIRECT AND REORIENT NEEDED. ASSIST WITH ALL ADLS. CAN NOT MAKE NEEDS KNOWN. AMBULATE WITH COMPLETE ASSIST. PERICARE Q 2HR AND PRN. BED AND CHAIR ALARM IN PLACE AND ACTIVE. WILL CONT PLAN OF CARE.
[2020-07-27 12:19] VITALS: Ht 167.6 cm; Wt 40.9 kg
--- NOTE | 2020-07-27 13:06 | NUR ---
NURSE SPOKE WITH DR. ESPITIA ABOUT PT LABS AT THIS TIME. NEW ORDER FOR N/S AT 125 ML/HR ONE 1,000 ML BAG.
[2020-07-27 20:00] VITALS: BP 154/55
--- NOTE | 2020-07-27 20:53 | NUR ---
PT RECEIVED IN BED RESTING CALMLY. IV INFUSING NS AT 125 ML/HR. COOPERATIVE WITH STAFF. NO PM MEDICATIONS ORDERED. NO AGGRESSION NOTED. MONITOR FOR SAFETY.
[2020-07-28 07:14] LABS: RAPID PLASMA REAGIN Non Reactive (Non Reactive)
[2020-07-28 09:42] VITALS: BP 109/49
--- NOTE | 2020-07-28 10:43 | HP ---
PATIENT: KHAI CHAMORRO MEDICAL RECORD: [id number] ACCOUNT: [id number] LOCATION:[facility] : 39 ADMISSION DATE: 07/26/20 PCP: No PCP HISTORY AND PHYSICAL EXAMINATION PSYCHIATRIC EVALUATION IDENTIFYING DATA: The patient is 79 years old and she is well known to me from recent hospitalization. CHIEF COMPLAINT: Confusion and agitation. HISTORY OF PRESENT ILLNESS: The patient is an elderly woman with a known history of dementia. The dementia is advanced. She has been recently in a halfway, but then was taken out of the halfway by family members. She has been combative, uncooperative, and refusing care. She has no recollection of these events. Her dementia is advanced. She is only oriented to person. She is admitted to the hospital because of the behavior problems. PAST MEDICAL HISTORY: Significant for diabetes, hyperlipidemia, and vitamin B deficiency. PAST PSYCHIATRIC HISTORY: Significant for dementia with a previous hospitalization here only a month ago for agitated behavior. FAMILY HISTORY: Significant for hypertension. ALLERGIES: No known drug allergies. CURRENT MEDICATIONS: Include, Insulin, Trilafon, Megace, Namenda, Glucophage, and Lexapro. SOCIAL HISTORY: The patient is . She has a that she has been to for 30 years. She has an adult daughter and granddaughter that are involved with her care. She has no history of drug or alcohol abuse and has never been a cigarette smoker. She apparently functioned reasonably well socially and occupationally through her adult life. MENTAL STATUS EXAMINATION: The patient is awake, alert, and oriented to person only. Her mood is flat. Her affect is constricted. Thought processes are circumstantial. Memory, concentration, and abstraction abilities are impaired. She denies that she would seek to harm herself or others as well as psychotic symptoms. DIAGNOSTIC IMPRESSION AXIS I: Major vascular neurocognitive disorder. AXIS II: None. AXIS III: Diabetes. AXIS IV: Moderate. AXIS V: Global assessment of functioning is 30. PLAN: At this time, the patient is admitted to the hospital secondary to agitated behavior associated with a dementing illness. She is not manageable at home or even in a halfway currently and efforts will be made to address these behavior problems to bring her under some level of management. HISTORY AND PHYSICAL [id number] KHAI CHAMORRO TRANSINT:[id number] Voice Confirmation ID: [id number] DOCUMENT ID: [id number] EFREN HECK MD at 1043 CC: [id number] DICTATION DATE: 07/27/20 1535 BLACK BELT: 07/27/202034 ADM IN [place] [id number] [place] [id number]
--- NOTE | 2020-07-28 16:54 | NUR ---
ALERT, CALM, COOPERATIVE, NO AGGRESSION NOTED. MEDS ADMIN PER ORDERS WITH COMPLETE MED COMPLIANCE NOTED AFTER MUCH COAXING. NO ADVERSE REACTION NOTED. APPETITE EXTREMELY POOR. CONTINUE PLAN OF CARE, MONITORING APPETITE AND MED COMPLIANCE.
[2020-07-28 22:17] VITALS: BP 119/65
--- NOTE | 2020-07-28 22:53 | NUR ---
PT IS ALERT AND ORIENTED TO SELF ONLY. RECEIVED IN A WHEELCHAIR IN THE HALLWAY OUTSIDE THE NURSES STATION. PT HAS A FLAT AFFECT. NO SCHEDULED HS MEDICATIONS. PT IS INCONT OF B&B. VERY UNSTEADY GAIT. EASY TO REDIRECT.
[2020-07-29 08:00] VITALS: BP 143/65
--- NOTE | 2020-07-29 10:47 | PN ---
PATIENT:KHAI CHAMORRO MEDICAL RECORD: [id number] LOCATION:[facility] [address] ADMISSION DATE: 07/26/20 PROGRESS NOTE DATE OF SERVICE: 07/28/2020 SUBJECTIVE: The patient's case was discussed with staff. She has no new complaint. OBJECTIVE: The patient is oriented to person and has had no hallucinations today. She has been sleeping well, but not eating very well. ASSESSMENT: Dementia. PLAN: The patient will be started on Megace to assist with appetite stimulation. I believe that the appetite suppression is related to the advanced nature of her dementia. She will be monitored for clinical changes associated with its use. TRANSINT:[id number] Voice Confirmation ID: [id number] DOCUMENT ID: [id number] EFREN HECK MD at 1047 CC: [id number] DICTATION DATE: 07/28/20 1108 PROFESSOR OF SPANISH: 07/28/20 1419 ADM IN [place] [id number] [place] [address]
--- NOTE | 2020-07-29 17:21 | NUR ---
0ALERT, CALM, SOMEWHAT UNCOOPERATIVE WITH CARE.
--- NOTE | 2020-07-29 18:00 | NUR ---
ALERT, CALM, SOMETIMES IS UNCOOPERATIVE WITH CARE. HOWEVER, DOES PERMIT PATIENT CARE NEEDED. NO AGGRESSION. SOMETIMES TAKES MEDS ORDERED, BUT DID REFUSE HER METFORMIN THIS EVENING. NO ADVERSE REACTION TO MEDS. CONTINUE PLAN OF CARE, MONITORING MED COMPLIANCE.
--- NOTE | 2020-07-29 18:55 | NUR ---
Attempted to flush IV site but patient had a lot gauze around her arm. As I removed the gauze dressing, I noted that about a inch of the IV cath was out of the skin. Pressure applied and rest of cath removed without patient pain or discomfort. Minimal bleeding occured.
--- NOTE | 2020-07-29 19:59 | NUR ---
RECEIVED IN BEDROOM. RESTING IN BED WITH EYES CLOSED. WITHDRAWN. WILL ONLY ANSWER QUESTIONS WITH SHORT ANSWERS. CALM AND COOPERATIVE WITH CARE AND ASSESSMENT. ENCOURAGE TO EXPRESS NEEDS. REDIRECT AND REORIENT NEEDED. CONTINUES TO REST QUIETLY IN BED WITH EYES CLOSED. CONTINUE PLAN OF CARE.
[2020-07-29 21:15] VITALS: BP 123/52
[2020-07-30 08:27] VITALS: BP 142/41
--- NOTE | 2020-07-30 13:29 | PN ---
PATIENT:KHAI CHAMORRO MEDICAL RECORD: [id number] LOCATION:[facility] ADMISSION DATE: 07/26/20 PROGRESS NOTE DATE OF SERVICE: 07/29/2020 SUBJECTIVE: The patient's case was discussed with staff. She has no new complaint. OBJECTIVE: The patient is oriented to person only. She has had no hallucinations. She has been somewhat resistant to taking her medications, but with effort, staff has been able to get her to take them most of the time. She still is not eating well, but has been started on Megace. ASSESSMENT: Dementia. PLAN: Current medicines have been reviewed and will be maintained. Long-term prognosis is guarded. TRANSINT:[id number] Voice Confirmation ID: [id number] DOCUMENT ID: [id number] EFREN HECK MD at 1329 CC: [id number] DICTATION DATE: 07/29/20 1108 BUYER BROKER: 07/29/20 1420 ADM IN [place] [address] [place] [address]
--- NOTE | 2020-07-30 17:30 | NUR ---
RECEIVED IN PATIENT ROOM. NONCOMPLIANT AND AGGRESSIVE WITH CARE. YELLING. REFUSING MEDICATIONS. WITHDRAWN AND ISOLATES HERSELF. REDIRECT AND REORIENT NEEDED. EATING DINNER AT THIS TIME. CONTINUE PLAN OF CARE.
[2020-07-30 20:00] VITALS: BP 135/46
--- NOTE | 2020-07-31 01:12 | NUR ---
RECEIVED IN BEDROOM. RESTING IN BED WITH EYES CLOSED. RESPONDS TO VOICE. CALM AND COOPERATIVE WITH CARE AND ASSESSMENT. NO STATEMENTS OF SELF HARM VOICED. ENCOURAGE TO EXPRESS NEEDS. FLAT. RESTING IN BED WITH EYES CLOSED AT THIS TIME. CONTINUE PLAN OF CARE.
--- NOTE | 2020-07-31 15:30 | PN ---
PATIENT:KHAI CHAMORRO MEDICAL RECORD: [id number] LOCATION:[facility] ADMISSION DATE: 07/26/20 PROGRESS NOTE DATE OF SERVICE: 07/30/2020 SUBJECTIVE: The patient's case was discussed with staff. She has no new complaint. OBJECTIVE: The patient is only oriented to person. She is blunted and withdrawn. Her appetite is poor. ASSESSMENT: Dementia. PLAN: The patient is taking Megace to stimulate her appetite. She is very late in this process and I think her prognosis is unfortunately poor. TRANSINT:[id number] Voice Confirmation ID: [id number] DOCUMENT ID: [id number] EFREN HECK MD at 1530 CC: [id number] DICTATION DATE: 07/30/20 1610 HOME CARE GIVER: 07/31/20 0023 ADM IN [facility] [address] [place] [address]
--- NOTE | 2020-07-31 17:30 | NUR ---
RECEIVED IN PATIENT ROOM. UNCOOPERATIVE AND AGGRESSIVE WITH CARE. YELLS AND CURSES STAFF. NONCOMPLIANT WITH MEDICATIONS. REDIRECT AND REORIENT NEEDED. EATING DINNER AT THIS TIME. CONTINUE PLAN OF CARE.
[2020-07-31 20:00] VITALS: BP 132/51
--- NOTE | 2020-07-31 20:52 | NUR ---
RECEIVED IN BEDROOM. RESTING IN BED WITH EYES OPEN. RESPONDS VERBALLY TO QUESTIONS THIS SHIFT. CONINUES TO BED FLAT. CALM AND COOPERATIVE WITH CARE AND ASSESSMENT. RESTING IN BED WITH EYES CLOSED AT THIS TIME. CONTINUE PLAN OF CARE.
[2020-08-01 08:32] VITALS: BP 129/63
--- NOTE | 2020-08-01 15:57 | NUR ---
Nutrition Re-Assessment Diet: Diabetic PO intake: ~26% average x last 9 meals Last BM: 07/29/20 Wt: 90# (07/29/20); Admit Wt: 90# (07/27/20) Meds noted: megace, metformin Labs noted: POC Glu 113(H)- previously Glu has mostly stayed WNL. Estimated nutrition needs remain unchanged from initial nutrition assessment at this time. Nutrition diagnosis: Inadequate energy intake r/t inadequate oral intake AEB PO intake only ~26% average x last 9 meals. Patient is not currently progressing towards meeting nutrition goals at this time. Recommendations/Interventions: -Recommend continue current diet. Encourage PO intake at meal times. -Recommend continue appetite stimulant as medically feasible. -Will add Glucerna TID. -RD will follow-up 08/06/20.
--- NOTE | 2020-08-01 16:06 | PN ---
PATIENT:KHAI CHAMORRO MEDICAL RECORD: [id number] LOCATION:[facility] [address] ADMISSION DATE: 07/26/20 PROGRESS NOTE DATE OF SERVICE: 07/31/2020 SUBJECTIVE: The patient's case was discussed with staff. She has no new complaint. OBJECTIVE: The patient is not taking her medicines. She could not give reasons why. In fact, she says she is going to take them and that she has been taking them, but that is not true. I do not think she is trying to be manipulative or that she has some hidden action. She is trying to conceal. She is just confused and that is because of her dementia. ASSESSMENT: Dementia. PLAN: My biggest concern at this point is that she is not taking her medicine along with the fact that she is not eating adequately and she only weighs 90 pounds. I consider her condition to be grave if these problems cannot be adequately addressed through the therapies that we provide here. Then, obviously she is not going to survive. I would like to try to convince her to eat more and take her medications, although I am not optimistic it is going to work out, but simply giving up on this is going to mean that she will not live and so I think more time needs to be given to trying to help her and convince her to eat and take the medications. TRANSINT:[id number] Voice Confirmation ID: [id number] DOCUMENT ID: [id number] EFREN HECK MD at 1606 CC: [id number] DICTATION DATE: 07/31/20 170 PILOT TEACHER: 08/01/20 0027 ADM IN [place] [id number] [place] [address]
--- NOTE | 2020-08-01 16:57 | NUR ---
RECEIVED THIS AM IN BED.ORIENTED TO SELF ONLY.TAKES MEDS CRUSHED AND GIVEN IN CHOCOLATE PUDDING.HAS TO BE ENCOURAGED TO TAKE MEDS.WILL CONTINUE WITH CURRENT PLAN OF CARE,MONITOR FOR CHANGES AND SAFETY.ASSISTD TO WHEELCHAIR AND TAKEN TO DAYROOM.
--- NOTE | 2020-08-01 17:40 | NUR ---
RECEIVED IN PATIENT ROOM. RESTING IN BED WITH EYES OPEN. CALM AND COOPERATIVE WITH ASSESSMENT. BECOMES AGITATED AND AGGRESSIVE WITH CARE. REDIRECT AND REORIENT NEEDED. EATING DINNER AT THIS TIME. CONTINUE PLAN OF CARE.
[2020-08-01 20:00] VITALS: BP 165/57
--- NOTE | 2020-08-01 21:32 | NUR ---
PT IS ALERT AND ORIENTED TO SELF ONLY. AGITATED WITH CARE BUT EASY TO REDIRECT. COMPLIANT WITH ALL MEDICATIONS. UNSTEADY GAIT USES A WHEELCHAIR TO ASSIST WITH AMBULATION. MONITOR FOR SAFETY.
[2020-08-02 09:42] VITALS: BP 145/49
--- NOTE | 2020-08-02 13:09 | PN ---
PATIENT:KHAI CHAMORRO MEDICAL RECORD: [id number] LOCATION:[facility] ADMISSION DATE: 07/26/20 PROGRESS NOTE DATE OF SERVICE: 08/01/2020 SUBJECTIVE: The patient's case was discussed with staff. She has no new complaint. OBJECTIVE: The patient did not eat very well yesterday, but this is an ongoing pattern and apparently she is holding her weight steady even though it is low. I have spoken with her about this again. She insists she is eating more than they are documenting, but I do not believe that. She did sleep well and she has not been aggressive. ASSESSMENT: Dementia. PLAN: Supportive and educational interventions were made. Long-term prognosis is guarded. TRANSINT:[id number] Voice Confirmation ID: [id number] DOCUMENT ID: [id number] EFREN HECK MD at 1309 CC: [id number] DICTATION DATE: 08/01/20 1750 PLASTIC PARTS FABRICATOR TRIMMER: 08/01/20 3695 ADM IN [facility] [address] [place] [id number]
--- NOTE | 2020-08-02 17:50 | NUR ---
PT DAUGHTER CALLED TO SPEAK WITH NURSE. PASSCODE GIVEN. SHE WAS INQUIREING HOW SHE WAS DOING AND WAS SHE WALKING ON HER OWN. DID STAFF THINK SHE COULD COME HOME WITH HOSPICE AND HOME HEALTH. NURSE STATED SHE COULD SPEAK WITH SOCIAL FELIZ FOR MORE INDEPTH RESOURCES. SHE STATED PT WOULD BE TAKING CARE OF HER WELL AND A PRECIPITATOR SUPERVISOR THAT LIVES UP THE ROAD THAT WAS NOT WORKING WOULD MORE THAN LIKELY. NURSE STATED SHE WAS NOT WALKING. STAFF ASSIST WITH TRANSFERS AND AMBULATION. SHE WOULD REQUIRE 24HR CARE. DAUGHTER STATED SHE WOULD NOT QUALIFY FOR SENIOR CARE CARE. NURSE STATED SHE COULD SPEAK WITH VIDEO GAME TECHNICIAN FOR FURTHER RESOURCES. SHE THANKED NURSE.
--- NOTE | 2020-08-02 17:54 | NUR ---
Patient rec'd up in a w/c in the hallway this am. She is A/O times one and can be sometimes very difficult to assess as she will just sit and stare at staff and never say a word. She is non-compliant with her meds and has refused all meds today. Many attempts and redirections but patient did not take the meds. She sat in group therapy/activities today but did not participate. She is non-compliant and demonstrates aggression and aggitation with ADLs.She is not cooperative and can be somewhat withdrawn at times.
[2020-08-02 20:00] VITALS: BP 113/65
--- NOTE | 2020-08-02 21:09 | NUR ---
PT IS ALERT AND ORIENTED TO SELF ONLY. SHE IS RECEIVED IN DAYROOM IN A WHEELCHAIR. SHE IS WITHDRAWN BUT WILL SPEAK WHEN SPOKEN TO. EASY TO REDIRECT. NO AGGRESSION NOTED. MONITOR FOR SAFETY.
[2020-08-03 09:34] VITALS: BP 131/65
--- NOTE | 2020-08-03 18:16 | NUR ---
pt sitting in dayarea. calm and cooperative. withdrawn. poor insight to situation. Pt can be resistant to redirection. flat affect. pt is noncompliant with meds. staff encourages multiple times to administer meds. pt alert to self only. reorient as needed. Pt can not make any needs known. pericare q 2 hr and prn. requires 2x assistance with ADLS. chair alarm in place and active.
[2020-08-03 20:00] VITALS: BP 111/43
--- NOTE | 2020-08-03 23:20 | NUR ---
B)RECEIVED PATIENT SITTING IN THE DAYROOM WITH HER FEET PROPPED ON THE TABLE. APPEARS ANGRY AMD WITHDRAWN. AVOIDS INTERACTONS WITH STAFF IE. WHEN ASKED PATIENT WHAT HER NAME IS SHE RESPONDED "WHAT'S YOUR NAME?" AND NEVER TOLD THE NURSE HER NAME. ORIENTED TO SELF ONLY. WITHDRAWN AND DOES NOT INTERACT WITH PEERS. I)REORIENT NEEDED. ENCOURAGE INTERACTION WITH STAFF AND PEERS. R)APPEARS ANGRY AND UNINTERESTED IN REORIENTING AND INTERACTING WITH OTHERS. WITHDRAWN AND WANTS TO BE LEFT ALONE. P)CONTINUE POC AND PROVIDE SAFE ENVIRONMENT.
[2020-08-04 08:00] VITALS: BP 122/45
--- NOTE | 2020-08-04 10:55 | NUR ---
MEGACE TAB CHANGED TO MEGACE 625 MG SUSP. PT NONCOMPLIANT WITH MEDS.
--- NOTE | 2020-08-04 15:17 | NUR ---
PT SITTING IN CHAIR AT THIS TIME. CONFUSION NOTED. PT IS ALERT TO SELF ONLY. REDIRECT AND REORIENT NEEDED. PT RESISTANT TO REDIRECTION DURING ADL CARE. CONTS TO REFUSE FOOD AND FLUIDS. NURSE OFFERED PT A CUP OF WATER PT TURNED HEAD STATING WHY DO I NEED WATER?" NURSE STATED TO BE HYDRATED. CONT EDUCATION ON FOOD AND WATER NEEDS. CHAIR ALARM IN PLACE AND ACTIVE. WILL CONT PLAN OF CARE.
--- NOTE | 2020-08-04 16:35 | NUR ---
PATIENT HAS REFUSED MEDS ALL SHIFT DESPITE MULTIPLE ATTEMPTS TO ADMINISTER, QUITE DEFIANT.
[2020-08-04 20:00] VITALS: BP 127/45
--- NOTE | 2020-08-05 00:57 | NUR ---
RECEIVED PATIENT IN DAYROOM IN WHEELCHAIR SHE IS ALWAYS TO HERSELF, SHE DOESN'T TAKE HS MEDS. SHE ATE HER SNACK. SHE HAS NO COMPLAINTS, NO SIGNS OF DISTRESS OR PAIN. WILL FOLLOW POC
[2020-08-05 06:25] LABS: BASOPHILS 0.4 % (0-2); EOSINOPHILS 1.2 % (0-7); HEMATOCRIT 33.1 % (36.0-48.0); HEMOGLOBIN 11.2 g/dL (12-16); IMMATURE GRANULOCYTES 0.2 % (0-5); LYMPHOCYTE ABS# 2.17 10x3/uL (1.18-3.74); LYMPHOCYTES 26.7 % (15-50); MCH 31.5 pg (26.0-34.0); MCHC 33.8 g/dL (31.0-37.0); MCV 93.2 fL (80.0-100.0); MEAN PLATELET VOLUME 9.6 fL (7.4-10.4); MONOCYTES 9.7 % (2-11); NEUTROPHIL ABS# 5.03 10x3/uL (1.56-6.13); NEUTROPHILS 61.8 % (40-80); PLATELET COUNT 291 10x3/uL (130-400); RBC 3.55 10x6/uL (4.00-5.40); RDW 13.8 % (11.5-14.5); WBC 8.1 10x3/uL (4.8-10.8)
[2020-08-05 06:41] LABS: ALBUMIN 2.8 g/dL (3.4-5.0); BILIRUBIN - TOTAL 0.16 mg/dL (0.2-1.3); CALCIUM 9.7 mg/dL (8.5-10.1); CARBON DIOXIDE 23.2 mmol/L (21.0-32.0); CREATININE - SERUM 0.9 mg/dL (0.6-1.3); POTASSIUM - SERUM 4.2 mmol/L (3.5-5.1)
[2020-08-05 09:43] VITALS: BP 140/70
--- NOTE | 2020-08-05 14:48 | NUR ---
REC'D PT IN BED WITH EYES OPEN. AWAKE AND ALERT TO PERSON ONLY. CALM AND COOPERATIVE WITH ASSESSMENT. PRESCRIBED MEDICATIONS PROVIDED ORDERED. PT REFUSED MEDICATIONS X 3. PT IS WITHDRAWN AT THIS TIME. REDIRECT AND REORIENT NEEDED. FALL PRECAUTIONS IN PLACE. WILL CPOC.
[2020-08-05 21:06] VITALS: BP 109/41
--- NOTE | 2020-08-05 21:15 | NUR ---
RECEIVED IN DAYROOM. SITTING IN A RECLINER WITH PEERS AT HER SIDE. RESTLESS AT TIMES. CALM AND COOPERATIVE WITH CARE AND ASSESSMENT. ENCOURAGE TO EXPRESS NEEDS. REDIRECT AND REORIENT NEEDED. CONTINUES TO SIT CALMLY IN DAYROOM. CONTINUE PLAN OF CARE.
[2020-08-06 08:00] VITALS: BP 110/47
--- NOTE | 2020-08-06 11:03 | NUR ---
NUTRITION FOLLOW UP: COMMENTS: Patient has been experiencing a poor appetite and poor PO intake. DIET: Regular Diet SUPPLEMENT: Glucerna with Meals PO INTAKE: 24% avg for meals; 100% avg for last 5 snacks WEIGHT: 07/29-90 lbs; 08/05-90.2 lbs SKIN: No PU or Chronic Wounds BM: x 1 on 08/03 SIG MEDS: Vit B12, Vit D, Lipitor, Megace SIG LABS: On 08/05: BUN-30(H), Albumin-2.8(L), POC Glucose: 142,114,109,135,119 RECOMMENDATIONS: -Continue Regular Diet as tolerated -Encourage PO intake -Assistance with meals if needed -Continue Glucerna w/ meals -Continue Megace appetite stimulant RD to follow up within 7 days
--- NOTE | 2020-08-06 12:00 | NUR ---
Received patient in bed with eyes closed. Responds to verbal stimuli. Assessment completed at this time. Prescribed medications provided as ordered. Patient refused meds x3. Patient can become easily agitated upon redirection and during ADLs. Redirect and reorient as needed. Fall precautions in place for safety. Will cpoc.
--- NOTE | 2020-08-06 13:46 | PN ---
PATIENT:KHAI CHAMORRO MEDICAL RECORD: [id number] LOCATION:[facility] ADMISSION DATE: 07/26/20 PROGRESS NOTE DATE OF SERVICE: 08/02/2020 SUBJECTIVE: The patient's case was discussed with staff. She has no new complaint. OBJECTIVE: The patient is eating a little better, perhaps the appetite stimulant is beginning to have some effect. ASSESSMENT: Dementia. PLAN: I am encouraged by the improvement in this patient's oral intake. Her cognitive processes are as you would expect unchanged. TRANSINT:[id number] Voice Confirmation ID: [id number] DOCUMENT ID: [id number] EFREN HECK MD at 1346 CC: [id number] DICTATION DATE: 08/02/20 155 CRAB PICKER: 08/02/202124 ADM IN [facility] [address] [place] [address]
--- NOTE | 2020-08-06 20:11 | NUR ---
RECEIVED IN HALLWAY. SITTING IN A WHEELCHAIR WITH PEERS AT HER SIDE. NOT SOCAIL. WILL RESPOND TO QUESTIONS. CALM AND COOPERATIVE WITH CARE AND ASSESSMENT. ENCOURAGE TO EXPRESS NEEDS. SITTING QUIETLY IN HALLWAY AT THIS TIME. CONTINUE PLAN OF CARE.
[2020-08-06 21:36] VITALS: BP 134/67
[2020-08-07 08:43] VITALS: BP 109/56
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
--- NOTE | 2020-08-07 17:24 | NUR ---
ORIENTED TO SELF ONLY.IS COMPLIANT WITH STAFF AMD MEDS.MEDS CRUSHED AND GIVEN IN CHOCOLATE ICE CREAM.HAS FLAT AFFECT,IS QUITE ,KEEPS TO SELF.WILL CONTINUE WITH CURRENT PLAN OF CARE,MONITOR FOR SAFETY AND CHANGES.
--- NOTE | 2020-08-07 21:33 | NUR ---
RECEIVED IN HALLWAY OUTSIDE OF NURSES STATION. NOT SOCIAL WITH STAFF. FLAT. WILL ANSWER DIRECT QUESTIONS. CALM AND COOPERATIVE WITH CARE AND ASSESSMENT. ATE PM SNACK. REDIRECT AND REORIENT NEEDED. CONTINUES TO SIT QUIETLY IN HALLWAY. CONTINUE PLAN OF CARE.
[2020-08-07 22:26] VITALS: BP 141/48
[2020-08-08 08:00] VITALS: BP 135/48
--- NOTE | 2020-08-08 11:11 | NUR ---
NUTRITION REASSESSMENT: COMMENTS: Pateint continues with low PO intake. Per MD, patient is to be fed at breakfast time, but can feed herself most of the time. MD stated patient's appetite has been improving. DIET: Regular Diet SUPPLEMENTS: Glucerna with meals PO INTAKE: 36% avg for last 9 meals; 100% for last 5 snacks WEIGHT: 07/29-90 lbs; 08/05-90.2 lbs BM: x 1 on 08/07 SIG MEDS: Senokot, Megace, Vit B12, Vit D, Lipitor SIG LABS: POC Glucose-143, 169, 142, 114 ESTIMATED ENERGY NEEDS (BASED ON CORINTENT'S ACTUAL BODY WEIGHT): 0671-4762 kcal/day (30-35 kcal/kg) 49-57 g protein/day (1.2-1.4 g/kg) 8080-2592 cc fluid (25-30 cc/kg) NUTRITION DIAGNOSIS: Inadequate oral intake related to advanced age and poor appetite as evidenced by PO intake <50% avg. RECOMMENDATIONS: Continue Regular Diet Continue Glucerna with meals Encourage PO intake Feeding assitance with breakfast/as needed RD to follow up within 7 days
--- NOTE | 2020-08-08 14:00 | NUR ---
leather production worker spoke to patient's daughter about discharge planning. Patient has stable behavior patient will discharge Thursday. leather production worker alerted Glenna to this. No other needs were expressed at this time.
--- NOTE | 2020-08-08 14:57 | NUR ---
NURSE SPOKE WITH PT DAUGHTER AT THIS TIME. PASSCODE GIVEN. DAUGHTER WANTED AN UPDATE ON HOW THE PT WAS DOING AT THIS TIME. NURSE STATED SHE WAS DOING BETTER PARTICIPATING IN GROUP, STAFF WAS HAVING TO CONTINUE TO CRUSH MEDS AND PUT IN LIQUIDS. SHE STATED OH YEAH UHH SO SHE STILL ISN'T TAKING HER MEDS" NURSE STATED SHE WAS TAKING THEM AT TIMES WITH NO BEHAVIORS NOTED. SHE WANTED TO KNOW WHEN SHE WAS DISCHARGING. NURSE SPOKE WITH CHERELLE GANDHI. NURSE GAVE DAUGHTER UPDATE IF SHE CONTINUE TO DO WELL AND TAKE MEDS THEN POSSIBLE D/C ON THURSDAY. DAUGHTER STATED SHE WANTED TO KNOW CAUSE SHE DIDNT WANT TO COME SHE HER TOMMORROW AND HAVE TO COME BACK THURSDAY. NURSE EXPRESSED UNDERSTANDING AND STATED TENTATIVE D/C DATE WAS Thursday08/10/20. SHE THANKED NURSE.
--- NOTE | 2020-08-08 15:33 | PN ---
PATIENT:KHAI CHAMORRO MEDICAL RECORD: [id number] LOCATION:[facility] ADMISSION DATE: 07/26/20 PROGRESS NOTE DATE OF SERVICE: 08/07/2020 SUBJECTIVE: The patient's case was discussed with staff. She has no new complaint. OBJECTIVE: The patient is severely impaired cognitively, but has not been aggressive. She is generally cooperative. Unfortunately, she is intermittently refusing medications, but again her behaviors have been good and even though she is not eating adequately she is maintaining her body weight. TRANSINT:[id number] Voice Confirmation ID: [id number] DOCUMENT ID: [id number] EFREN HECK MD at 1533 CC: [id number] DICTATION DATE: 08/07/[address] DEPUTY CLERK: 08/07/20 2333 ADM IN [facility] [address] [place] [address]
--- NOTE | 2020-08-08 18:01 | NUR ---
PT SITTING AND EATING AT THIS TIME. PT IS CALM AND COOPERATIVE WITH STAFF AND PEERS. REDIRCT AND REORIENT NEEDED. PT IS WITHDRAWN AND SLOW TO ANSWER QUESTIONS. FLAT AFFECT NOTED. CRUSHED MEDS. CONT TO ENCOURAGE MEDS WITH PT. REQUIRES ASSISTANCE WITH ADLS. CAN NOT MAKE NEEDS. CHAIR AND BED ALARM IN PLACE AND ACTIVE. WILL CONT PLAN OF CARE.
[2020-08-08 20:00] VITALS: BP 127/45
--- NOTE | 2020-08-08 20:19 | NUR ---
RECEIVED PATIENT IN [facility], FLAT AFFECT, SHE SAYS SHE'S FINE BUT SHE IS ALERT TO SELF ONLY, SHE DOES NOT HAVE ANY HS MEDS AT THIS TIME. SHE IS VERY LABILE AT TIMES AND DOES NOT LIKE ANY TYPE OF ADL CARE. WILL FOLLOW POC
[2020-08-09 08:55] VITALS: BP 114/63
--- NOTE | 2020-08-09 14:20 | NUR ---
pt sitting in chair at this time. pt is calm and cooperative at this time. pt can be combative with adls. unable to redirect pt due to low cognitive functioning. pt was combative when nurse attempted to assist pt with AM adls. will cont to redirect and reorient as needed. pt is compliant with crushed meds, vitals and assessments. cont to encourage medication intake and food intake. Can not make needs known. Can not ambulate. requires 2x assistance with alds. cont to provide pericare and turn q 2 hr and prn when in bed. cont to use wheelchair pad when in W/C. will cont plan of care.
--- NOTE | 2020-08-09 14:50 | NUR ---
nurse spoke with daughter at this time. passcode given. she inquired if she was d/c on 08/10/20 if not she was wanting to visit her this shift. nurse stated she was more than likey was not being d/c'd but will stay over the weekend. it would be okay if she wanted to visit this shift. nurse would give her a sure answer when she came to visit. she stated she would be there at visitation. nurse verbalizied understanding.
--- NOTE | 2020-08-09 16:09 | PN ---
PATIENT:KHAI CHAMORRO MEDICAL RECORD: [id number] LOCATION:[facility] ADMISSION DATE: 07/26/20 PROGRESS NOTE DATE OF SERVICE: 08/08/2020 SUBJECTIVE: The patient's case was discussed with staff. She has no new complaint. OBJECTIVE: The patient is in good behavioral control with limited insight about her situation. She unfortunately is only oriented to person and has been withdrawn and at times labile, but not in a way that would be acutely dangerous. ASSESSMENT: Dementia. PLAN: At this time, I think the problem with her eating is better and I am comfortable that she will at least maintain this body weight if she eats what she is eating now. I am concerned that she only intermittently takes her medications. She has very limited insight about this. If this current level of improvement remains, I anticipate that she can be discharged in a day or two. TRANSINT:[id number] Voice Confirmation ID: [id number] DOCUMENT ID: [id number] EFREN HECK MD at 1609 CC: [id number] DICTATION DATE: 08/08/20 1621 INTERNAL CONTROL CONSULTANT: 08/08/20 2327 ADM IN [facility] [address] [place] [address]
[2020-08-09 20:00] VITALS: BP 116/46
--- NOTE | 2020-08-10 00:26 | NUR ---
B) Patient is alert and oriented to person, calm and cooperative, self isolates in a wheelchair, legs drawn up under her, smiles when spoken to, I) Administered scheduled medications as ordered, monitored for safety, R) Medication compliant, combative with ADL's, P) Continue plan of care.
--- NOTE | 2020-08-10 07:44 | NUR ---
PT LAYING IN BED AT THIS TIME. CONFUSION NOTED. ALERT TO SELF ONLY. COMBATIVE WITH CARE AT TIMES. WITHDRAWN. ATTEMPT TO REDIRECT BEHAVIOR UNABLE TO DO SO. CONT TO ENCOURAGE MEDICATION INTAKE CRUSHED MEDS. PT REQUIRES TOTAL ASSISTANCE WITH ADLS. CONT TO ENCOURAGE PT TO DO ADLS, ORAL INTAKE AND FLUIDS. BED AND CHAIR ALARM IN PLACE AND ACTIVE. WILL CONT PLAN OF CARE.
[2020-08-10 10:00] VITALS: BP 103/67
--- NOTE | 2020-08-10 14:20 | NUR ---
wheelchair cushion in place due to slight redness noted to buttocks. barrier cream applied. pt tolerated well.
--- NOTE | 2020-08-10 15:00 | NUR ---
Patient rec'd up in bed. She continues to refuse her meds and ADL care.Diffent attempts have been tried to get patient to take her meds and she will attempt to refuse often or spit them out. She is difficult to direct or redirect.She is A/O times one to person.
--- NOTE | 2020-08-10 16:01 | NUR ---
this nurse spoke with daughter at this time. passcode given. she asked how she was doing. nurse gave an update. pt conts to have behaviors with care and adls. she conts to take megace to stimulate appetite and needs constant encouragement. she stated well when i was visiting yesterday she wasnt really talking and she was closing her eyes and she didnt recognize me. nurse stated she was a bit drowsy due to not sleeping well the night before. unfortunately as the dementia progresses she will not talk much, she won't eat much, she wont recongize family members. that's part of the disease progression. she stated she was worried about her dad he was being difficult and she hoped he wont be that way by the time she gets home. she asked if we knew exactly when she discharged. nurse stated if she has a good weekend then the team with re-eval d/c planning for Thursday we are hoping. There would be more information avaliable on thursday. she verbalizied understanding.
[2020-08-10 20:00] VITALS: BP 147/64
--- NOTE | 2020-08-10 21:37 | NUR ---
PT IS ALERT AND ORIENTED TO SELF ONLY. POOR INSIGHT INTO HER SITUATION. RECEIVED IN HALLWAY IN WHEELCHAIR EATING. CALM AND COOPERATIVE WITH STAFF. COMANCHE AT TIMES. PLEASANT WITH STAFF. COMPLIANT WITH ALL MEDICATIONS. EASY TO REDIRECT. NO AGGRESSION OR AGITATION AT THIS TIME. MONITOR FOR SAFETY.
--- NOTE | 2020-08-11 03:02 | NUR ---
PT RESTLESS. ATTEMPTS TO GET OUT OF BED WITHOUT ASSIST. DIFFICULT TO REDIRECT. PT COMBATIVE WITH REDIRECTION. MONITOR FOR SAFETY.
[2020-08-11 08:45] VITALS: BP 131/75
--- NOTE | 2020-08-11 16:23 | NUR ---
RECEIVED THIS AM SITTING UP IN RECLINER.IS ORIENTED TO SELF.COMPLIANT WITH STAFF AND MEDS.NO AGGRESSION OBSERVED THIS SHIFT.WILL CONTINUE WITH CURRENT PLAN OF CARE,MONITOR FOR CHANGES AND SAFETY.
[2020-08-11 20:00] VITALS: BP 113/48
--- NOTE | 2020-08-11 21:08 | NUR ---
PT IS ALERT AND ORIENTED TO SELF ONLY. POOR INSIGHT INTO HER SITUATION. VERY WICHITA. CALM AND COOPERATIVE WITH STAFF. COMPLIANT WITH ALL MEDICATIONS. NO AGGRESSION NOTED. MONITOR FOR SAFETY.
--- NOTE | 2020-08-12 01:22 | NUR ---
SOME AGGITATION WITH MHT WHEN ASSISTING WITH CARE. EASY TO REDIRECT.
[2020-08-12 08:22] VITALS: BP 150/56
--- NOTE | 2020-08-12 15:10 | NUR ---
Rec'd patient this am sitting up in a w/c in hallway. She is A/O to her person. She can be very confused at times. She varies on her med compliance as to one episode of compliance to another of non-compliance. Many different interventions of foods/drinks have been attempted. She is resistant to care, food, and medications. She has behaviors of being aggressive to staff of hitting and slapping and using verbal remarks.She is on finger foods at each meal service to assist and encourage her to eat. She is still demonstrating refusals of care.
--- NOTE | 2020-08-12 19:48 | NUR ---
RECEIVED IN BEDROOM. RESTING IN BED WITH EYES CLOSED. RESPONDS TO VOICE. CALM AND COOPEERATIVE WITH CARE AND ASSESSMENT. PLEASANT WITH THIS NURSE. ENCOURAGE TO EXPRESS NEEDS. CONTINUES TO REST QUIETLY IN BED. CONTINUE PLAN OF CARE.
[2020-08-12 21:20] VITALS: BP 107/40
[2020-08-13 08:00] VITALS: BP 146/76
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
--- NOTE | 2020-08-13 09:52 | NUR ---
Nutrition Follow-up: Diet: Regular- finger foods + Ensure TID PO intake: ~24% average x last 9 meals; is drinking some Ensure per nursing flowsheets Last BM: 08/12/20 Wt: 91.4# (08/12/20); Admit Wt: 90# (07/27/20) *Noted patient with pedal edema currently so current weight may actually be somewhat less 2/2 fluid status. Meds noted: metformin, senokot, megace Labs noted: POC Glu 194(H) Recommend: -Continue current diet and oral nutrition supplements. Encourage PO intake at meal times. -Will continue to honor food preferences. -Recommend continue appetite stimulant as medically feasible. -RD will follow-up 08/15/20.
--- NOTE | 2020-08-13 17:52 | NUR ---
Patient refused medications for med nurse x 3. Redirect and reorient as needed. Will cpoc.
--- NOTE | 2020-08-13 17:52 | NUR ---
ALERT, CONFUSED, QUIET. REFUSES MEDS IF LEFT WHOLE, HOWEVER PATIENT WAS COMPLIANT IF MEDS WERE CRUSHED AND MIXED WITH PUDDING. NO ADVERSE REACTION TO MEDS. NO AGGRESSION NOTED. CONT POC OUTLINED.
--- NOTE | 2020-08-13 17:52 | NUR ---
Received patient sitting in wheelchair by the nurses station. Awake and alert to person only. Prescribed medications provided as ordered. Med compliant. No behaviors noted at this time. Redirect and reorient as needed. Fall precautions in place for safety. Will cpoc.
--- NOTE | 2020-08-13 20:27 | NUR ---
RECEIVED IN BEDROOM. RESTING IN BED WITH EYES OPEN. CALM AND COOPERATIVE WITH CARE AND ASSESSMENT. FLAT. NO SIGNS OF AGGRESSION. REDIRECT AND REORIENT NEEDED. REESTING IN BED WITH EYES CLOSED AT THIS TIME. CONTINUE PLAN OF CARE.
[2020-08-13 21:42] VITALS: BP 122/48
--- NOTE | 2020-08-14 10:00 | NUR ---
PT REFUSED ANTI-EMBOLISM STOCKINGS X 3. PT EDUCATED ON THE IMPORTANCE OF STOCKINGS.
[2020-08-14 14:19] VITALS: BP 141/53
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
--- NOTE | 2020-08-14 15:33 | NUR ---
PT IS CALM AND COOPERATIVE WITH STAFF. COMPLIANT WITH CRUSHED MEDS, VITALS AND ASSESSMENTS. CONFUSION NOTED. REDIRECT AND REORIENT NEEDED. PT REQUIRES TOTAL ASSISTANCE WITH ALDS. CAN NOT MAKE NEEDS KNOWN. WITHDRAWN. CONTS TO YELL WITH PERSONAL CARE. NO AGGRESSIVE BEHAVIOR NOTED. RED NOTED TO BUTTOCKS. W/C CUSHION IN PLACE. PT TOLERATES WELL. CONT TO ENCOURAGE FLUIDS, AND MEALS. WILL CONT PLAN OF CARE.
[2020-08-14] MEDS ORDERED: LIPITOR10 MG PO (17:20)
[2020-08-14] MEDS ORDERED: LISINOPRIL10 MG PO (17:20)
[2020-08-14] MEDS ORDERED: Megace ES [CHEMO] PO (17:21)
[2020-08-14] MEDS ORDERED: Senokot TAB PO (17:21)
[2020-08-14] MEDS ORDERED: VITAMIN D325 MC1 PO (17:22)
[2020-08-14] MEDS ORDERED: VITAMIN B-121000 MCG PO (17:22)
--- NOTE | 2020-08-14 20:09 | NUR ---
RECEIVED IN HALLWAY OUTSIDE OF NURSES STATION, EATING SUPPER. SOCIAL WITH THIS NURSE. CALM AND COOPERATIVE WITH CARE AND ASSESSMENT. ENCOURAGE TO EXPRESS NEEDS. CONTINUES TO SIT QUIETLY IN HALLWAY AT THIS TIME. CONTINUE PLAN OF CARE.
[2020-08-14 21:50] VITALS: BP 94/54
[2020-08-15 09:22] VITALS: BP 141/59
--- NOTE | 2020-08-15 10:15 | NUR ---
hop worker spoke with patient's daughter, Glenna, to discuss discharge planning needs at this time. Patient will discharge home with [facility] out of [place] office. Patient will follow up with Dr. Mckenzie in [place]. Patient's medicines were called into [facility] in [facility]. No other needs voiced at this time.
--- NOTE | 2020-08-15 10:20 | NUR ---
MEDICATIONS CALLED INTO ED PHARMACIST AT [facility] CONTACT # [phone]. TORB: DR. HECK/DELVIS ALL MEDICATIONS, DOSE, ROUTE, AND TIME READ BACK AND VERIFIED PER ED PHARMACIST. NO REFILLS PER DR. HECK. YANE ESTES AWARE AND APPROVED DISCHARGE HOME TODAY AT 4PM WITH [facility]. ALL PAPERWORK FAXED TO PCP DR. BOOKER CONTACT # [phone]. FAX # [phone]. SPENCER CHRISTINE WITH [facility] PRESENT ON UNIT THIS MORNING PICKED UP DISCHARGE PAPERWORK.
--- NOTE | 2020-08-15 15:03 | PN ---
PATIENT:KHAI CHAMORRO MEDICAL RECORD: [id number] LOCATION:[facility] ADMISSION DATE: 07/26/20 PROGRESS NOTE DATE OF SERVICE: 08/14/2020 SUBJECTIVE: The patient's case was discussed with staff. She has no new complaint. OBJECTIVE: The patient is in good behavioral control with limited insight about her situation. She does tolerate her medicines well. ASSESSMENT: Dementia. PLAN: At this time, the patient can be transitioned out of the hospital in the morning, assuming current levels of improvement are sustained. She will have hospice evaluation today and I feel fairly confident she will be approved for either hospice or at a minimum palliative care, which will provide additional services in the home. TRANSINT:[id number] Voice Confirmation ID: [id number] DOCUMENT ID: [id number] EFREN HECK MD at 1503 CC: [id number] DICTATION DATE: 08/14/201718 FABRICATION DEPARTMENT SUPERVISOR: 08/14/20 2331 ADM IN [place] [id number] [place] [id number]
--- NOTE | 2020-08-15 16:19 | NUR ---
PT DISCHARGED WITH HOME WITH FAMILY AT THIS TIME. [facility] WILL FOLLOW PT. NO S/SX OF DISTRESS NOTED. ALL DISCHARGE PAPERWORK FAXED TO DR. BOOKER. AND COPY SENT WITH PT AT THIS TIME.
--- NOTE | 2020-08-16 11:38 | PN ---
PATIENT:KHAI CHAMORRO MEDICAL RECORD: [id number] LOCATION:[id number] ADMISSION DATE: 07/26/20 PROGRESS NOTE DATE OF SERVICE: 08/15/2020 SUBJECTIVE: The patient's case was discussed with staff. She has no new complaint. OBJECTIVE: The patient denies that she would seek to harm herself or others. She is tolerating her medicines well. Eye contact is fair. ASSESSMENT: Dementia. PLAN: I anticipate the patient can be transitioned out of the hospital soon. TRANSINT:[id number] Voice Confirmation ID: [id number] DOCUMENT ID: [id number] EFREN HECK MD at 1138 CC: [id number] DICTATION DATE: 08/15/20 1522 [employer] O[employer]ATOR: 08/15/20 1705 DIS IN 08/15/20 [facility] [address] [place] [address]
== END 2020-08-15 16:23 | disposition home health service (06) | DRG 57 ==
LOC: D.ER 17:20 → D.PSYCH 22:25
PROVIDERS: Family Medicine; ADMIT Psychiatry & Neurology Psychiatry; ATTEND Psychiatry & Neurology Psychiatry
DX: I69.919 Unspecified symptoms and signs involving cognitive functions following unspecified cerebrovascular disease (principal); F01.51 Vascular dementia, unspecified severity, with behavioral disturbance; Z68.1 Body mass index [BMI] 19.9 or less, adult; I10 Essential (primary) hypertension; E78.5 Hyperlipidemia, unspecified; J43.9 Emphysema, unspecified; E53.8 Deficiency of other specified B group vitamins; R63.0 Anorexia; K59.00 Constipation, unspecified; R21 Rash and other nonspecific skin eruption; E11.9 Type 2 diabetes mellitus without complications